=== PATIENT | female | born 1970 | race Caucasian/White ===

== ENCOUNTER → 2017-12-17 | Outpatient (CLI) | payer OTHER, BC ==
[~2017-12-17] MED LIST: Advil200 M1 PO; CONTRAVE ER 8-1 EACH; DIPATR PO; FAMC500; OXYACE5T PO; PROM25 PO
== END | disposition home or self-care (01) ==
LOC: LAB SHORT 11:52 → PLD 11:52
DX: D22.0 Melanocytic nevi of lip (principal)
CPT/HCPCS: 88305

== ENCOUNTER → 2019-04-07 | Outpatient (CLI) | payer OTHER, BC ==
[2019-04-08 11:19] LABS: Alanine Aminotransfer (ALT/SGP 20 U/L (12-78); Albumin, Blood 3.6 g/dL (3.4-5.0); Albumin/Globulin Ratio 1.1 (0.8-1.8); Alk Phos 78 U/L (50-136); Anion Gap 5 mmol/L (6-16); Aspartate Aminotrans (AST/SGOT 16 U/L (12-37); Bilirubin, Total 0.4 mg/dL (0.1-1.0); Blood Urea Nitrogen 13 mg/dL (8-24); Bun/Creatinine Ratio 18.7 (12.0-20.0); CO2, Blood 30 mmol/L (21-32); Calcium, Blood 9.2 mg/dL (8.5-10.1); Chloride, Blood 105 mmol/L (98-108); Globulin, Blood 3.3 g/dL (2.2-4.0); Glomerular Filtration Rate >60 (60-); Glucose, Blood 85 mg/dL (70-99); Potassium, Blood 4.3 mmol/L (3.5-5.5); Sodium, Blood 140 mmol/L (136-145); Total Protein, Blood 6.9 g/dL (6.4-8.2)
== END | disposition home or self-care (01) ==
LOC: LAB 14:43 → LAB SHORT 14:43
PROVIDERS: Hospitalist
DX: R10.13 Epigastric pain (principal)
CPT/HCPCS: 80053; 83690

== ENCOUNTER → 2019-06-16 | Outpatient (CLI) | payer OTHER, BC ==
[2019-06-16 16:56] LABS: BASOPHILS ABSOLUTE AUTO 0.04 K/mm3 (0.00-0.23); BASOPHILS PERCENT AUTO 1 % (0-2); EOSINOPHILS ABSOLUTE AUTO 0.06 K/mm3 (0.00-0.68); EOSINOPHILS PERCENT AUTO 1 % (0-6); Hematocrit 40.4 % (33.0-51.0); Hemoglobin 13.2 g/dL (11.5-16.0); IMMATURE GRAN ABSOLUTE AUTO 0.02 K/mm3 (0.00-0.10); IMMATURE GRAN PERCENT AUTO 0 % (0-1); LYMPHOCYTES ABSOLUTE AUTO 0.97 K/mm3 (0.84-5.20); LYMPHOCYTES PERCENT AUTO 17 % (21-46); MONOCYTES PERCENT AUTO 7 % (4-13); Mean Corpuscular HGB 28.6 pg (26.0-34.0); Mean Corpuscular HGB Conc 32.7 g/dL (31.5-36.5); Mean Corpuscular Volume 87 fL (80-100); Mean Platelet Volume 9.7 fL (9.1-12.4); NEUTROPHILS ABSOLUTE AUTO 4.39 K/mm3 (1.96-9.15); NEUTROPHILS PERCENT AUTO 75 % (41-73); Platelet Count 495 K/mm3 (150-400); RDW Coefficient Variation 12.7 % (11.7-14.2); Red Blood Cell Count 4.62 M/mm3 (3.80-5.20); White Blood Cell Count 5.88 K/mm3 (4.00-11.30)
[2019-06-16 17:03] LABS: Alanine Aminotransfer (ALT/SGP 18 U/L (12-78); Albumin, Blood 3.6 g/dL (3.4-5.0); Albumin/Globulin Ratio 0.7 (0.8-1.8); Alk Phos 97 U/L (40-126); Anion Gap 9 mmol/L (6-16); Aspartate Aminotrans (AST/SGOT 18 U/L (12-37); Bilirubin, Total 0.4 mg/dL (0.1-1.0); Blood Urea Nitrogen 11 mg/dL (8-24); Bun/Creatinine Ratio 15.9 (12.0-20.0); CO2, Blood 31 mmol/L (21-32); Calcium, Blood 9.1 mg/dL (8.5-10.1); Chloride, Blood 100 mmol/L (98-108); Creatinine, Blood 0.69 mg/dL (0.40-1.00); Globulin, Blood 5.1 g/dL (2.2-4.0); Glomerular Filtration Rate >60 (60-); Glucose, Blood 99 mg/dL (70-99); Potassium, Blood 3.8 mmol/L (3.5-5.5); Sodium, Blood 140 mmol/L (136-145); Total Protein, Blood 8.7 g/dL (6.4-8.2)
== END ==
LOC: LAB SHORT 16:47 → LAB EV 16:47
PROVIDERS: Physician Assistant Medical
DX: R10.84 Generalized abdominal pain (principal)
CPT/HCPCS: 80053; 83690; 85025

== ENCOUNTER 2019-07-26 08:25 | Day surgery (SDC) | payer OTHER, BC ==
[~2019-07-26] VITALS: Ht 170.2 cm; Wt 87.1 kg
[~2019-07-26 08:25] MED LIST changes: +ALPR.5 PO
[2019-07-26] MEDS ORDERED: PARO20 PO (08:48)
[2019-07-26] MEDS ORDERED: IBUP200 PO (08:49)
[2019-07-26] MEDS ORDERED: FAMC500 PO (08:50)
[2019-07-26] MEDS ORDERED: Percocet 5-3251 EACH PO (09:15)
--- NOTE | 2019-07-26 13:06 | NUR ---
Patient up to Ambulate independently. Gait steady. Discharge instructions reviewed with patient. Patient verbalizes understanding. Copy given to patient to take home. Patient States Post-Procedure ride home has been arranged. Discharged via wheelchair to private car for ride home. ALL MEDIPORT LITERATURE AND INSTRUCTIONS SENT HOME WITH PATIENT. UP TO VOID WITHOUT DIFFICULTY. ALL BELONINGS RETURNED TO PATIENT.
== END 2019-07-26 22:38 | disposition home or self-care (01) ==
LOC: ORSCMMR 08:25
PROVIDERS: Surgery
PROC: B5131ZA Fluoroscopy of Right Jugular Veins using Low Osmolar Contrast, Guidance (ICD-10-PCS; principal; 2019-07-26 08:30)
PROC: 05HM33Z Insertion of Infusion Device into Right Internal Jugular Vein, Percutaneous Approach (ICD-10-PCS; principal; 2019-07-26 08:30)
DX: C56.1 Malignant neoplasm of right ovary (principal); F17.210 Nicotine dependence, cigarettes, uncomplicated; G47.33 Obstructive sleep apnea (adult) (pediatric); Z79.899 Other long term (current) drug therapy
CPT/HCPCS: 77001; C1788; J0690; J1100; J1642; J2250; J2405; J2704; J7120

== ENCOUNTER 2021-09-27 08:04 | Day surgery (SDC) | payer BC ==
[2021-09-25 08:25] LABS: BASOPHILS PERCENT AUTO 0 % (0-2); EOSINOPHILS ABSOLUTE AUTO 0.04 K/mm3 (0.00-0.68); EOSINOPHILS PERCENT AUTO 2 % (0-6); Hematocrit 18.7 % (33.0-51.0); Hemoglobin 6.6 g/dL (11.5-16.0); IMMATURE GRAN ABSOLUTE AUTO 0.01 K/mm3 (0.00-0.10); IMMATURE GRAN PERCENT AUTO 1 % (0-1); LYMPHOCYTES PERCENT AUTO 21 % (21-46); MONOCYTES ABSOLUTE AUTO 0.13 K/mm3 (0.16-1.47); MONOCYTES PERCENT AUTO 7 % (4-13); Mean Corpuscular HGB 35.5 pg (26.0-34.0); Mean Corpuscular HGB Conc 35.3 g/dL (31.5-36.5); Mean Corpuscular Volume 101 fL (80-100); Mean Platelet Volume 10.2 fL (9.1-12.4); NEUTROPHILS ABSOLUTE AUTO 1.34 K/mm3 (1.96-9.15); NEUTROPHILS PERCENT AUTO 70 % (41-73); RDW Coefficient Variation 15.9 % (11.7-14.2); RDW Standard Deviation 55.5 fL (35.1-46.3); Red Blood Cell Count 1.86 M/mm3 (3.80-5.20); White Blood Cell Count 1.92 K/mm3 (4.00-11.30)
[2021-09-25 08:31] LABS: Platelet Count 31 K/mm3 (150-400)
[2021-09-25 08:44] LABS: Albumin, Blood 3.5 g/dL (3.4-5.0); Albumin/Globulin Ratio 1.1 (0.8-1.8); Bilirubin, Total 0.8 mg/dL (0.1-1.0); Bun/Creatinine Ratio 18.6 (12.0-20.0); Calcium, Blood 8.9 mg/dL (8.5-10.1); Creatinine, Blood 0.7 mg/dL (0.40-1.00); Globulin, Blood 3.3 g/dL (2.2-4.0); Potassium, Blood 3.9 mmol/L (3.5-5.5); Total Protein, Blood 6.8 g/dL (6.4-8.2)
[2021-09-25 09:55] LABS: IMMATURE RETIC FRACTION 24.5 % (2.3-16.0); RETIC HGB EQUIVALENT 39.1 pg (28.20-36.60); RETICULOCYTE ABSOLUTE 0.0564 M/mm3 (0.0200-0.1100); RETICULOCYTE COUNT PERCENT 2.79 % (0.50-2.50)
[2021-09-25 10:48] LABS: Percent Saturation 54.3 % (15.0-50.0); Thyroid Stimulating Hormone 2.42 uIU/mL (0.360-4.800)
[~2021-09-27 08:04] MED LIST changes: +CEPH500 PO; +FAMC500 PO; +IBUP200 PO; +PARO20 PO; +Percocet 5-3251 EACH PO
[2021-09-27] MEDS ORDERED: PARO20 PO (08:08)
[2021-09-27 13:11] LABS: A/G RATIO 1.4 (0.7-1.7); ALBUMIN 3.8 g/dL (2.9-4.4); ALPHA-1-GLOBULIN 0.4 g/dL (0.0-0.4); ALPHA-2-GLOBULIN 0.7 g/dL (0.4-1.0); GAMMA GLOBULIN 0.8 g/dL (0.4-1.8); GLOBULIN, TOTAL 2.8 g/dL (2.2-3.9); IMMUNOGLOBULIN A, QN, SERUM 147 mg/dL (87-352); IMMUNOGLOBULIN G, QN, SERUM 756 mg/dL (586-1602); IMMUNOGLOBULIN M, QN, SERUM 96 mg/dL (26-217); M-SPIKE Not Observed g/dL (Not Observed); PROTEIN, TOTAL, SERUM 6.6 g/dL (6.0-8.5)
== END 2021-09-27 22:36 | disposition home or self-care (01) ==
LOC: ATC 08:04 → LAB FUT 07-31 09:10 → ATC 07-31 09:10 → EDSTATUS 07-31 09:10 → ATC 09-27 09:10
PROVIDERS: Internal Medicine Hematology & Oncology
DX: C56.1 Malignant neoplasm of right ovary (principal); D64.81 Anemia due to antineoplastic chemotherapy; Z87.891 Personal history of nicotine dependence; Z79.01 Long term (current) use of anticoagulants
CPT/HCPCS: 36415; 36430; 80053; 82306; 82525; 82607; 82668; 82728; 82746; 82784; 83540; 83550; 83615; 84165; 84443; 85025; 85045; 86304; 86334; 86850; 86900; 86901; 86920; J1642; J7040; P9016

== ENCOUNTER 2021-10-18 01:53 | Day surgery (SDC) | payer BC | END 2021-10-18 17:10 | disposition home or self-care (01) | LOC: ATC 01:53 | DX: C56.1 Malignant neoplasm of right ovary (principal); C78.6 Secondary malignant neoplasm of retroperitoneum and peritoneum; C77.5 Secondary and unspecified malignant neoplasm of intrapelvic lymph nodes; D64.81 Anemia due to antineoplastic chemotherapy | CPT/HCPCS: 36415; 36430; 86850; 86900; 86901; 86923; J1642; J7040; P9016 ==

== ENCOUNTER 2021-10-31 00:18 | Day surgery (SDC) | payer BC | END 2021-10-31 16:10 | disposition home or self-care (01) | LOC: ATC 00:18 | DX: D64.9 Anemia, unspecified (principal); C56.1 Malignant neoplasm of right ovary; Z79.899 Other long term (current) drug therapy | CPT/HCPCS: 36415; 86850; 86900; 86901; 86923; J1642; J7040; P9016 ==

== ENCOUNTER 2021-11-07 01:51 | Day surgery (SDC) | payer BC | END 2021-11-07 17:48 | disposition home or self-care (01) | LOC: ATC 01:51 | DX: C56.1 Malignant neoplasm of right ovary (principal); C78.6 Secondary malignant neoplasm of retroperitoneum and peritoneum; Z87.891 Personal history of nicotine dependence | CPT/HCPCS: 36430; 86850; 86900; 86901; 86923; J1642; J7040; P9016; P9035 ==

== ENCOUNTER 2021-11-27 13:04 | Day surgery (SDC) | payer BC | END 2021-11-27 18:24 | disposition home or self-care (01) | LOC: ATC 13:04 | DX: D64.81 Anemia due to antineoplastic chemotherapy (principal); C56.1 Malignant neoplasm of right ovary; Z87.891 Personal history of nicotine dependence; Z79.899 Other long term (current) drug therapy | CPT/HCPCS: 36430; 86850; 86900; 86901; 86923; J1642; J7040; P9016 ==

== ENCOUNTER 2022-01-03 18:52 | Emergency (ER) | payer BC ==
[~2022-01-03] VITALS: Ht 170.2 cm; Wt 115.2 kg
[2022-01-03 19:59] LABS: Mean Corpuscular HGB Conc 34.7 g/dL (31.5-36.5); Mean Corpuscular Volume 87 fL (80-100); Mean Platelet Volume 10.4 fL (9.1-12.4); RDW Coefficient Variation 14.9 % (11.7-14.2); RDW Standard Deviation 44.2 fL (35.1-46.3)
[2022-01-03 20:02] LABS: Platelet Count 8 K/mm3 (150-400)
[2022-01-03 20:03] LABS: Hematocrit 17.3 % (33.0-51.0)
[2022-01-03 20:12] LABS: International Normalized Ratio 0.94; Prothrombin Time Results 9.9 Sec (9.7-11.5)
[2022-01-03 20:14] LABS: Albumin, Blood 3.5 g/dL (3.4-5.0); Bilirubin, Total 0.7 mg/dL (0.1-1.0); Bun/Creatinine Ratio 26.5 (12.0-20.0); Calcium, Blood 8.7 mg/dL (8.5-10.1); Creatinine, Blood 0.91 mg/dL (0.40-1.00); Globulin, Blood 3.5 g/dL (2.2-4.0); Potassium, Blood 3.6 mmol/L (3.5-5.5)
[2022-01-03 20:18] LABS: BAND PERCENT MAN 2 % (0-8); BASOPHILS PERCENT MAN 0 % (0-2); EOSINOPHILS PERCENT MAN 4 % (0-6); LYMPHOCYTES ABSOLUTE MAN 0.69 K/mm3 (0.84-5.20); LYMPHOCYTES PERCENT MAN 9 % (21-46); METAMYELOCYTE ABSOLUTE MAN 0.07 K/mm3 (0.00-0.00); METAMYELOCYTE PERCENT MAN 1 % (0-0); MONOCYTES PERCENT MAN 4 % (4-13); MYELOCYTE ABSOLUTE MAN 0.15 K/mm3 (0.00-0.00); MYELOCYTE PERCENT MAN 2 % (0-0); NEUTROPHILS ABSOLUTE MAN 6.16 K/mm3 (1.96-9.15); SEG NEUTROPHILS PERCENT MAN 78 % (41-73); TOTAL CELLS COUNTED 100
== END 2022-01-04 03:33 | disposition home or self-care (01) ==
LOC: ER 18:52
PROVIDERS: Physician Assistant
DX: N93.9 Abnormal uterine and vaginal bleeding, unspecified (principal); D64.9 Anemia, unspecified; D69.6 Thrombocytopenia, unspecified; Z87.891 Personal history of nicotine dependence; Z85.43 Personal history of malignant neoplasm of ovary
CPT/HCPCS: 36430; 80053; 85025; 85610; 86850; 86900; 86901; 86923; 96360; 99284-25; J7030; P9016; P9035

== ENCOUNTER 2022-01-24 03:20 | Day surgery (SDC) | payer BC ==
[2022-01-23 12:20] LABS: Hematocrit 21.8 % (33.0-51.0); Hemoglobin 7.5 g/dL (11.5-16.0); Mean Corpuscular HGB 30.4 pg (26.0-34.0); Mean Corpuscular HGB Conc 34.4 g/dL (31.5-36.5); Mean Corpuscular Volume 88 fL (80-100); RDW Coefficient Variation 14.6 % (11.7-14.2); RDW Standard Deviation 46.8 fL (35.1-46.3); Red Blood Cell Count 2.47 M/mm3 (3.80-5.20); White Blood Cell Count 5.92 K/mm3 (4.00-11.30)
[2022-01-23 12:52] LABS: Platelet Count 6 K/mm3 (150-400)
[2022-01-23 13:05] LABS: BASOPHILS PERCENT MAN 0 % (0-2); EOSINOPHILS ABSOLUTE MAN 0.17 K/mm3 (0.00-0.68); EOSINOPHILS PERCENT MAN 3 % (0-6); LYMPHOCYTES ABSOLUTE MAN 0.59 K/mm3 (0.84-5.20); LYMPHOCYTES PERCENT MAN 10 % (21-46); MONOCYTES ABSOLUTE MAN 0.35 K/mm3 (0.16-1.47); MONOCYTES PERCENT MAN 6 % (4-13); NEUTROPHILS ABSOLUTE MAN 4.79 K/mm3 (1.96-9.15); SEG NEUTROPHILS PERCENT MAN 81 % (41-73); TOTAL CELLS COUNTED 100
== END 2022-01-24 14:08 | disposition home or self-care (01) ==
LOC: ATC 03:20
PROVIDERS: Internal Medicine Hematology & Oncology
DX: C56.1 Malignant neoplasm of right ovary (principal)
CPT/HCPCS: 36415; 36430; 85025; 86900; 86901; J1642; J7040; P9035

== ENCOUNTER 2022-02-07 00:37 | Day surgery (SDC) | payer BC ==
[2022-02-06 13:42] LABS: Hematocrit 23.1 % (33.0-51.0); Hemoglobin 7.9 g/dL (11.5-16.0); Mean Corpuscular HGB 29.8 pg (26.0-34.0); Mean Corpuscular HGB Conc 34.2 g/dL (31.5-36.5); Mean Corpuscular Volume 87 fL (80-100); Mean Platelet Volume 11.4 fL (9.1-12.4); RDW Coefficient Variation 13.9 % (11.7-14.2); Red Blood Cell Count 2.65 M/mm3 (3.80-5.20); White Blood Cell Count 9.45 K/mm3 (4.00-11.30)
[2022-02-06 13:53] LABS: Platelet Count 6 K/mm3 (150-400)
[2022-02-06 14:03] LABS: BAND PERCENT MAN 1 % (0-8); BASOPHILS PERCENT MAN 0 % (0-2); EOSINOPHILS PERCENT MAN 0 % (0-6); LYMPHOCYTES ABSOLUTE MAN 0.56 K/mm3 (0.84-5.20); LYMPHOCYTES PERCENT MAN 6 % (21-46); MONOCYTES ABSOLUTE MAN 0.28 K/mm3 (0.16-1.47); MONOCYTES PERCENT MAN 3 % (4-13); NEUTROPHILS ABSOLUTE MAN 8.59 K/mm3 (1.96-9.15); SEG NEUTROPHILS PERCENT MAN 90 % (41-73); TOTAL CELLS COUNTED 100
== END 2022-02-07 15:19 | disposition home or self-care (01) ==
LOC: ATC 00:37
PROVIDERS: Internal Medicine Hematology & Oncology
DX: C56.1 Malignant neoplasm of right ovary (principal); D69.59 Other secondary thrombocytopenia
CPT/HCPCS: 36415; 36430; 85025; 86900; 86901; J1642; J7040; P9035

== ENCOUNTER 2022-02-13 12:51 | Day surgery (SDC) | payer BC ==
[2022-02-12 19:19] LABS: Hematocrit 22.7 % (33.0-51.0); Hemoglobin 7.4 g/dL (11.5-16.0); Mean Corpuscular HGB 28.9 pg (26.0-34.0); Mean Corpuscular HGB Conc 32.6 g/dL (31.5-36.5); Mean Corpuscular Volume 89 fL (80-100); RDW Standard Deviation 45.3 fL (35.1-46.3); Red Blood Cell Count 2.56 M/mm3 (3.80-5.20); White Blood Cell Count 6.66 K/mm3 (4.00-11.30)
[2022-02-12 19:45] LABS: Platelet Count 6 K/mm3 (150-400)
[2022-02-12 20:15] LABS: BAND PERCENT MAN 2 % (0-8); BASOPHILS PERCENT MAN 0 % (0-2); EOSINOPHILS ABSOLUTE MAN 0.06 K/mm3 (0.00-0.68); EOSINOPHILS PERCENT MAN 1 % (0-6); LYMPHOCYTES ABSOLUTE MAN 0.66 K/mm3 (0.84-5.20); LYMPHOCYTES PERCENT MAN 10 % (21-46); METAMYELOCYTE ABSOLUTE MAN 0.19 K/mm3 (0.00-0.00); METAMYELOCYTE PERCENT MAN 3 % (0-0); MONOCYTES ABSOLUTE MAN 0.13 K/mm3 (0.16-1.47); MONOCYTES PERCENT MAN 2 % (4-13); MYELOCYTE ABSOLUTE MAN 0.26 K/mm3 (0.00-0.00); MYELOCYTE PERCENT MAN 4 % (0-0); NEUTROPHILS ABSOLUTE MAN 5.32 K/mm3 (1.96-9.15); SEG NEUTROPHILS PERCENT MAN 78 % (41-73); TOTAL CELLS COUNTED 100
== END 2022-02-13 17:58 | disposition home or self-care (01) ==
LOC: ATC 12:51 → EDSTATUS 12:54 → ATC 17:58
PROVIDERS: Internal Medicine Hematology & Oncology
DX: C56.1 Malignant neoplasm of right ovary (principal); D69.59 Other secondary thrombocytopenia; Z87.891 Personal history of nicotine dependence
CPT/HCPCS: 36415; 85025; 86900; 86901; J1642; J7040; P9035

== ENCOUNTER 2022-02-19 00:08 | Day surgery (SDC) | payer BC ==
[2022-02-18 12:39] LABS: BASOPHILS PERCENT AUTO 0 % (0-2); EOSINOPHILS ABSOLUTE AUTO 0.05 K/mm3 (0.00-0.68); EOSINOPHILS PERCENT AUTO 1 % (0-6); Mean Corpuscular HGB 30.2 pg (26.0-34.0); Mean Corpuscular HGB Conc 34.5 g/dL (31.5-36.5); Mean Corpuscular Volume 88 fL (80-100); Mean Platelet Volume 10.2 fL (9.1-12.4); RDW Coefficient Variation 13.4 % (11.7-14.2); RDW Standard Deviation 42.7 fL (35.1-46.3); Red Blood Cell Count 1.92 M/mm3 (3.80-5.20); White Blood Cell Count 3.68 K/mm3 (4.00-11.30)
[2022-02-18 13:23] LABS: Hematocrit 16.8 % (33.0-51.0); Hemoglobin 5.8 g/dL (11.5-16.0); IMMATURE GRAN ABSOLUTE AUTO 0.07 K/mm3 (0.00-0.10); IMMATURE GRAN PERCENT AUTO 2 % (0-1); LYMPHOCYTES PERCENT AUTO 14 % (21-46); MONOCYTES ABSOLUTE AUTO 0.18 K/mm3 (0.16-1.47); MONOCYTES PERCENT AUTO 5 % (4-13); NEUTROPHILS ABSOLUTE AUTO 2.88 K/mm3 (1.96-9.15); NEUTROPHILS PERCENT AUTO 78 % (41-73)
[2022-02-18 13:24] LABS: Platelet Count 16 K/mm3 (150-400)
[2022-02-18 13:47] LABS: BASOPHILS PERCENT MAN 0 % (0-2); TOTAL CELLS COUNTED 100
[2022-02-18 13:49] LABS: BAND PERCENT MAN 2 % (0-8); EOSINOPHILS ABSOLUTE MAN 0.03 K/mm3 (0.00-0.68); EOSINOPHILS PERCENT MAN 1 % (0-6); LYMPHOCYTES PERCENT MAN 11 % (21-46); MONOCYTES ABSOLUTE MAN 0.07 K/mm3 (0.16-1.47); MONOCYTES PERCENT MAN 2 % (4-13); NEUTROPHILS ABSOLUTE MAN 3.16 K/mm3 (1.96-9.15); SEG NEUTROPHILS PERCENT MAN 84 % (41-73)
== END 2022-02-19 11:50 | disposition home or self-care (01) ==
LOC: ATC 00:08 → EDSTATUS 14:00
PROVIDERS: Internal Medicine Hematology & Oncology
DX: C56.1 Malignant neoplasm of right ovary (principal); D64.81 Anemia due to antineoplastic chemotherapy; D46.21 Refractory anemia with excess of blasts 1; T45.1X5A Adverse effect of antineoplastic and immunosuppressive drugs, initial encounter
CPT/HCPCS: 36415; 36430; 85025; 86850; 86900; 86901; 86923; J1642; J7040; P9016

== ENCOUNTER 2022-02-27 06:00 | Day surgery (SDC) | payer BC ==
[2022-02-26 11:11] LABS: BASOPHILS PERCENT AUTO 0 % (0-2); EOSINOPHILS ABSOLUTE AUTO 0.01 K/mm3 (0.00-0.68); EOSINOPHILS PERCENT AUTO 0 % (0-6); Hematocrit 18.7 % (33.0-51.0); Hemoglobin 6.5 g/dL (11.5-16.0); IMMATURE GRAN ABSOLUTE AUTO 0.14 K/mm3 (0.00-0.10); IMMATURE GRAN PERCENT AUTO 3 % (0-1); LYMPHOCYTES ABSOLUTE AUTO 0.39 K/mm3 (0.84-5.20); LYMPHOCYTES PERCENT AUTO 9 % (21-46); MONOCYTES ABSOLUTE AUTO 0.12 K/mm3 (0.16-1.47); MONOCYTES PERCENT AUTO 3 % (4-13); Mean Corpuscular HGB 29.1 pg (26.0-34.0); Mean Corpuscular HGB Conc 34.8 g/dL (31.5-36.5); Mean Corpuscular Volume 84 fL (80-100); NEUTROPHILS ABSOLUTE AUTO 3.49 K/mm3 (1.96-9.15); NEUTROPHILS PERCENT AUTO 84 % (41-73); RDW Coefficient Variation 13.2 % (11.7-14.2); RDW Standard Deviation 39.7 fL (35.1-46.3); Red Blood Cell Count 2.23 M/mm3 (3.80-5.20); White Blood Cell Count 4.15 K/mm3 (4.00-11.30)
[2022-02-26 11:19] LABS: Platelet Count 6 K/mm3 (150-400)
[2022-02-26 12:14] LABS: Albumin, Blood 3.3 g/dL (3.4-5.0); Albumin/Globulin Ratio 0.8 (0.8-1.8); Bilirubin, Total 0.7 mg/dL (0.1-1.0); Bun/Creatinine Ratio 35.2 (12.0-20.0); Calcium, Blood 9.2 mg/dL (8.5-10.1); Creatinine, Blood 0.74 mg/dL (0.40-1.00); Globulin, Blood 3.9 g/dL (2.2-4.0); Potassium, Blood 4.1 mmol/L (3.5-5.5); Total Protein, Blood 7.2 g/dL (6.4-8.2)
== END 2022-02-27 14:18 | disposition home or self-care (01) ==
LOC: ATC 06:00 → LAB FUT 02-22 14:35 → EDSTATUS 02-22 14:35
PROVIDERS: Internal Medicine Hematology & Oncology
DX: C56.1 Malignant neoplasm of right ovary (principal); D46.21 Refractory anemia with excess of blasts 1; D70.1 Agranulocytosis secondary to cancer chemotherapy
CPT/HCPCS: 36415; 36430; 80053; 85025; 86304; 86850; 86900; 86901; 86923; J1642; J7040; P9016; P9035

== ENCOUNTER 2022-03-06 00:18 | Day surgery (SDC) | payer BC ==
[2022-03-05 08:39] LABS: BASOPHILS PERCENT AUTO 0 % (0-2); EOSINOPHILS PERCENT AUTO 0 % (0-6); Hematocrit 24.6 % (33.0-51.0); Hemoglobin 8.4 g/dL (11.5-16.0); IMMATURE GRAN ABSOLUTE AUTO 0.11 K/mm3 (0.00-0.10); IMMATURE GRAN PERCENT AUTO 2 % (0-1); LYMPHOCYTES ABSOLUTE AUTO 0.42 K/mm3 (0.84-5.20); LYMPHOCYTES PERCENT AUTO 8 % (21-46); MONOCYTES ABSOLUTE AUTO 0.08 K/mm3 (0.16-1.47); MONOCYTES PERCENT AUTO 2 % (4-13); Mean Corpuscular HGB 28.7 pg (26.0-34.0); Mean Corpuscular HGB Conc 34.1 g/dL (31.5-36.5); Mean Corpuscular Volume 84 fL (80-100); Mean Platelet Volume 9.4 fL (9.1-12.4); NEUTROPHILS ABSOLUTE AUTO 4.37 K/mm3 (1.96-9.15); NEUTROPHILS PERCENT AUTO 88 % (41-73); RDW Standard Deviation 39.8 fL (35.1-46.3); Red Blood Cell Count 2.93 M/mm3 (3.80-5.20); White Blood Cell Count 4.98 K/mm3 (4.00-11.30)
[2022-03-05 09:09] LABS: Platelet Count 10 K/mm3 (150-400)
== END 2022-03-06 11:07 | disposition home or self-care (01) ==
LOC: ATC 00:18 → EDSTATUS 09:30 → ATC 11:07
PROVIDERS: Internal Medicine Hematology & Oncology
DX: D69.59 Other secondary thrombocytopenia (principal); C56.1 Malignant neoplasm of right ovary; D46.21 Refractory anemia with excess of blasts 1
CPT/HCPCS: 36415; 36430; 85025; 86900; 86901; J1642; J7040; P9035

== ENCOUNTER 2022-03-29 01:01 | Day surgery (SDC) | payer BC ==
[2022-03-27 11:51] LABS: BASOPHILS PERCENT AUTO 0 % (0-2); EOSINOPHILS PERCENT AUTO 0 % (0-6); Hematocrit 18.4 % (33.0-51.0); Hemoglobin 6.3 g/dL (11.5-16.0); IMMATURE GRAN ABSOLUTE AUTO 0.04 K/mm3 (0.00-0.10); IMMATURE GRAN PERCENT AUTO 1 % (0-1); LYMPHOCYTES ABSOLUTE AUTO 0.35 K/mm3 (0.84-5.20); LYMPHOCYTES PERCENT AUTO 12 % (21-46); MONOCYTES ABSOLUTE AUTO 0.06 K/mm3 (0.16-1.47); MONOCYTES PERCENT AUTO 2 % (4-13); Mean Corpuscular HGB 28.4 pg (26.0-34.0); Mean Corpuscular HGB Conc 34.2 g/dL (31.5-36.5); Mean Corpuscular Volume 83 fL (80-100); Mean Platelet Volume 9.9 fL (9.1-12.4); NEUTROPHILS ABSOLUTE AUTO 2.44 K/mm3 (1.96-9.15); NEUTROPHILS PERCENT AUTO 84 % (41-73); RDW Coefficient Variation 13.2 % (11.7-14.2); RDW Standard Deviation 39.9 fL (35.1-46.3); Red Blood Cell Count 2.22 M/mm3 (3.80-5.20); White Blood Cell Count 2.89 K/mm3 (4.00-11.30)
[2022-03-27 12:11] LABS: Platelet Count 14 K/mm3 (150-400)
== END 2022-03-29 10:58 | disposition home or self-care (01) ==
LOC: ATC 01:01 → EDSTATUS 07:30 → ATC 07:30
PROVIDERS: Internal Medicine Hematology & Oncology
DX: C56.1 Malignant neoplasm of right ovary (principal); Z87.891 Personal history of nicotine dependence; Z79.1 Long term (current) use of non-steroidal anti-inflammatories (NSAID); Z79.01 Long term (current) use of anticoagulants; Z79.899 Other long term (current) drug therapy
CPT/HCPCS: 36415; 36430; 85025; 86850; 86900; 86901; 86923; J1642; J7040; P9016

== ENCOUNTER 2022-04-08 14:24 | Day surgery (SDC) | payer BC | END 2022-04-08 15:53 | disposition home or self-care (01) | LOC: ATC 14:24 | DX: C56.1 Malignant neoplasm of right ovary (principal); D69.59 Other secondary thrombocytopenia; D46.21 Refractory anemia with excess of blasts 1 | CPT/HCPCS: 86900; 86901; J1642; J7040; P9035 ==

== ENCOUNTER 2022-05-10 22:13 | Emergency (ER) | payer BC ==
[~2022-05-10] VITALS: Ht 170.2 cm; Wt 108.9 kg
[~2022-05-10 22:13] MED LIST changes: +FENTANYL1 EA10 TOP; +OMEPRAZOLE DR PO; +OXYC10TA19 PO; +Ondansetron Odt8 MG
[2022-05-10] MEDS ORDERED: AMOX-CLAV 875-1 EAC5 PO (22:33)
[2022-05-10 23:36] LABS: Hematocrit 21.4 % (33.0-51.0); Hemoglobin 7.3 g/dL (11.5-16.0); Mean Corpuscular HGB 29.1 pg (26.0-34.0); Mean Corpuscular HGB Conc 34.1 g/dL (31.5-36.5); Mean Corpuscular Volume 85 fL (80-100); Mean Platelet Volume 9.3 fL (9.1-12.4); RDW Coefficient Variation 14.7 % (11.7-14.2); RDW Standard Deviation 45.6 fL (35.1-46.3); Red Blood Cell Count 2.51 M/mm3 (3.80-5.20)
[2022-05-10 23:38] LABS: Platelet Count 6 K/mm3 (150-400)
[2022-05-10 23:53] LABS: Albumin, Blood 2.7 g/dL (3.4-5.0); Albumin/Globulin Ratio 0.8 (0.8-1.8); Bilirubin, Total 1.3 mg/dL (0.1-1.0); Bun/Creatinine Ratio 21.7 (12.0-20.0); Calcium, Blood 8.7 mg/dL (8.5-10.1); Creatinine, Blood 0.65 mg/dL (0.40-1.00); Globulin, Blood 3.4 g/dL (2.2-4.0); Potassium, Blood 3.6 mmol/L (3.5-5.5); Total Protein, Blood 6.1 g/dL (6.4-8.2)
[2022-05-10 23:57] LABS: BAND PERCENT MAN 3 % (0-8); BASOPHILS PERCENT MAN 0 % (0-2); EOSINOPHILS PERCENT MAN 0 % (0-6); LYMPHOCYTES ABSOLUTE MAN 0.18 K/mm3 (0.84-5.20); LYMPHOCYTES PERCENT MAN 5 % (21-46); METAMYELOCYTE ABSOLUTE MAN 0.07 K/mm3 (0.00-0.00); METAMYELOCYTE PERCENT MAN 2 % (0-0); MONOCYTES ABSOLUTE MAN 0.21 K/mm3 (0.16-1.47); MONOCYTES PERCENT MAN 6 % (4-13); NEUTROPHILS ABSOLUTE MAN 3.13 K/mm3 (1.96-9.15); SEG NEUTROPHILS PERCENT MAN 84 % (41-73); TOTAL CELLS COUNTED 100
== END 2022-05-11 02:28 | disposition home or self-care (01) ==
LOC: ER 22:13
PROVIDERS: Student in an Organized Health Care Education/Training Program
DX: U07.1 COVID-19 (principal); D72.819 Decreased white blood cell count, unspecified; D64.9 Anemia, unspecified; D84.821 Immunodeficiency due to drugs; T45.1X5A Adverse effect of antineoplastic and immunosuppressive drugs, initial encounter; C56.9 Malignant neoplasm of unspecified ovary; Z79.899 Other long term (current) drug therapy
CPT/HCPCS: 36415; 71045; 80053; 85025; 93005; 93010; 96360; 99285-25; A9270; J7030

== ENCOUNTER 2022-05-14 12:00 | Day surgery (SDC) | payer BC ==
[2022-05-13 15:41] LABS: BASOPHILS ABSOLUTE AUTO 0.01 K/mm3 (0.00-0.23); BASOPHILS PERCENT AUTO 0 % (0-2); EOSINOPHILS ABSOLUTE AUTO 0.03 K/mm3 (0.00-0.68); EOSINOPHILS PERCENT AUTO 1 % (0-6); Hematocrit 21.2 % (33.0-51.0); Hemoglobin 7.2 g/dL (11.5-16.0); IMMATURE GRAN ABSOLUTE AUTO 0.32 K/mm3 (0.00-0.10); IMMATURE GRAN PERCENT AUTO 7 % (0-1); LYMPHOCYTES ABSOLUTE AUTO 0.38 K/mm3 (0.84-5.20); LYMPHOCYTES PERCENT AUTO 9 % (21-46); MONOCYTES ABSOLUTE AUTO 0.16 K/mm3 (0.16-1.47); MONOCYTES PERCENT AUTO 4 % (4-13); Mean Corpuscular HGB 29.3 pg (26.0-34.0); Mean Corpuscular Volume 86 fL (80-100); Mean Platelet Volume 11.1 fL (9.1-12.4); NEUTROPHILS ABSOLUTE AUTO 3.56 K/mm3 (1.96-9.15); NEUTROPHILS PERCENT AUTO 80 % (41-73); RDW Coefficient Variation 14.6 % (11.7-14.2); RDW Standard Deviation 45.9 fL (35.1-46.3); Red Blood Cell Count 2.46 M/mm3 (3.80-5.20); White Blood Cell Count 4.46 K/mm3 (4.00-11.30)
[2022-05-13 15:48] LABS: Platelet Count 3 K/mm3 (150-400)
[2022-05-13 15:57] LABS: Albumin, Blood 2.8 g/dL (3.4-5.0); Albumin/Globulin Ratio 0.7 (0.8-1.8); Bilirubin, Total 0.9 mg/dL (0.1-1.0); Bun/Creatinine Ratio 25.6 (12.0-20.0); Calcium, Blood 9.1 mg/dL (8.5-10.1); Creatinine, Blood 0.63 mg/dL (0.40-1.00); Potassium, Blood 3.4 mmol/L (3.5-5.5); Total Protein, Blood 6.8 g/dL (6.4-8.2)
[~2022-05-14 12:00] MED LIST changes: +AMOX-CLAV 875-1 EAC5 PO
== END 2022-05-14 23:59 | disposition home or self-care (01) ==
LOC: ATC 12:00
PROVIDERS: Internal Medicine Hematology & Oncology
DX: D69.59 Other secondary thrombocytopenia (principal); T50.905A Adverse effect of unspecified drugs, medicaments and biological substances, initial encounter; Z87.891 Personal history of nicotine dependence; Z79.899 Other long term (current) drug therapy; Z79.01 Long term (current) use of anticoagulants
CPT/HCPCS: 36415; 36430; 80053; 85025; 86900; 86901; 96374; A9270; J1200; J1642; J7040; P9035

== ENCOUNTER 2022-05-20 09:43 | Day surgery (SDC) | payer BC ==
[2022-05-20 08:43] LABS: Albumin, Blood 2.7 g/dL (3.4-5.0); Albumin/Globulin Ratio 0.7 (0.8-1.8); Bilirubin, Total 0.9 mg/dL (0.1-1.0); Calcium, Blood 8.5 mg/dL (8.5-10.1); Creatinine, Blood 0.76 mg/dL (0.40-1.00); Potassium, Blood 3.5 mmol/L (3.5-5.5); Total Protein, Blood 6.7 g/dL (6.4-8.2)
[2022-05-20 08:45] LABS: BASOPHILS PERCENT AUTO 0 % (0-2); EOSINOPHILS ABSOLUTE AUTO 0.01 K/mm3 (0.00-0.68); EOSINOPHILS PERCENT AUTO 0 % (0-6); IMMATURE GRAN ABSOLUTE AUTO 0.12 K/mm3 (0.00-0.10); IMMATURE GRAN PERCENT AUTO 2 % (0-1); LYMPHOCYTES ABSOLUTE AUTO 0.49 K/mm3 (0.84-5.20); LYMPHOCYTES PERCENT AUTO 7 % (21-46); MONOCYTES ABSOLUTE AUTO 0.18 K/mm3 (0.16-1.47); MONOCYTES PERCENT AUTO 2 % (4-13); Mean Corpuscular HGB 29.4 pg (26.0-34.0); Mean Corpuscular HGB Conc 34.5 g/dL (31.5-36.5); Mean Corpuscular Volume 85 fL (80-100); Mean Platelet Volume 9.9 fL (9.1-12.4); NEUTROPHILS ABSOLUTE AUTO 6.67 K/mm3 (1.96-9.15); NEUTROPHILS PERCENT AUTO 89 % (41-73); RDW Coefficient Variation 14.3 % (11.7-14.2); RDW Standard Deviation 44.5 fL (35.1-46.3); White Blood Cell Count 7.47 K/mm3 (4.00-11.30)
[2022-05-20 09:10] LABS: Hematocrit 14.5 % (33.0-51.0)
[2022-05-20 09:11] LABS: Platelet Count 8 K/mm3 (150-400)
--- NOTE | 2022-05-20 10:48 | NUR ---
PT O2 IS 87-88 ON RA. PT PLACED ON 1L OF O2 VIA N/C. WITH 1ST 15 MINUTED VS HER O2 WAS 95% ON 1L N/C. TOO O2 OFF AND BIO WAS 91%.
== END 2022-05-20 15:21 | disposition home or self-care (01) ==
LOC: ATC 09:43 → EDSTATUS 09:49 → ATC 15:21
PROVIDERS: Internal Medicine Hematology & Oncology
DX: D46.21 Refractory anemia with excess of blasts 1 (principal); D69.59 Other secondary thrombocytopenia; T50.905A Adverse effect of unspecified drugs, medicaments and biological substances, initial encounter; C56.1 Malignant neoplasm of right ovary; Z87.891 Personal history of nicotine dependence; Z79.899 Other long term (current) drug therapy; Z79.01 Long term (current) use of anticoagulants
CPT/HCPCS: 36415; 36430; 80053; 85025; 86850; 86900; 86901; 86923; 96374; A9270; J1200; J1642; J7050; P9016; P9035

== ENCOUNTER 2022-05-28 06:55 | Day surgery (SDC) | payer BC ==
[2022-05-27 12:11] LABS: BASOPHILS ABSOLUTE AUTO 0.01 K/mm3 (0.00-0.23); BASOPHILS PERCENT AUTO 0 % (0-2); EOSINOPHILS ABSOLUTE AUTO 0.04 K/mm3 (0.00-0.68); EOSINOPHILS PERCENT AUTO 1 % (0-6); Hematocrit 19.4 % (33.0-51.0); Hemoglobin 6.6 g/dL (11.5-16.0); IMMATURE GRAN ABSOLUTE AUTO 0.24 K/mm3 (0.00-0.10); IMMATURE GRAN PERCENT AUTO 5 % (0-1); LYMPHOCYTES ABSOLUTE AUTO 0.15 K/mm3 (0.84-5.20); LYMPHOCYTES PERCENT AUTO 3 % (21-46); MONOCYTES ABSOLUTE AUTO 0.05 K/mm3 (0.16-1.47); MONOCYTES PERCENT AUTO 1 % (4-13); Mean Corpuscular Volume 88 fL (80-100); Mean Platelet Volume 10.7 fL (9.1-12.4); NEUTROPHILS ABSOLUTE AUTO 4.86 K/mm3 (1.96-9.15); NEUTROPHILS PERCENT AUTO 91 % (41-73); RDW Coefficient Variation 14.3 % (11.7-14.2); RDW Standard Deviation 45.8 fL (35.1-46.3); White Blood Cell Count 5.35 K/mm3 (4.00-11.30)
[2022-05-27 12:19] LABS: Platelet Count 4 K/mm3 (150-400)
[2022-05-27 12:39] LABS: Albumin, Blood 2.8 g/dL (3.4-5.0); Albumin/Globulin Ratio 0.8 (0.8-1.8); Bilirubin, Total 0.8 mg/dL (0.1-1.0); Bun/Creatinine Ratio 20.5 (12.0-20.0); Calcium, Blood 8.8 mg/dL (8.5-10.1); Creatinine, Blood 0.68 mg/dL (0.40-1.00); Globulin, Blood 3.4 g/dL (2.2-4.0); Potassium, Blood 3.8 mmol/L (3.5-5.5); Total Protein, Blood 6.2 g/dL (6.4-8.2)
== END 2022-05-28 18:30 | disposition home or self-care (01) ==
LOC: ATC 06:55 → EDSTATUS 13:30 → ATC 18:30
PROVIDERS: Internal Medicine Hematology & Oncology
DX: D46.21 Refractory anemia with excess of blasts 1 (principal); D69.59 Other secondary thrombocytopenia; D64.81 Anemia due to antineoplastic chemotherapy; C56.1 Malignant neoplasm of right ovary
CPT/HCPCS: 36415; 36430; 80053; 85025; 86850; 86900; 86901; 86923; A9270; J1200; J1642; J7050; P9016; P9035

== ENCOUNTER 2022-06-05 02:01 | Day surgery (SDC) | payer BC ==
[2022-06-03 10:06] LABS: Hematocrit 23.8 % (33.0-51.0); Mean Corpuscular HGB 28.5 pg (26.0-34.0); Mean Corpuscular HGB Conc 33.6 g/dL (31.5-36.5); Mean Corpuscular Volume 85 fL (80-100); RDW Coefficient Variation 14.6 % (11.7-14.2); RDW Standard Deviation 45.1 fL (35.1-46.3); Red Blood Cell Count 2.81 M/mm3 (3.80-5.20); White Blood Cell Count 3.67 K/mm3 (4.00-11.30)
[2022-06-03 10:53] LABS: Platelet Count 5 K/mm3 (150-400)
[2022-06-03 11:11] LABS: BAND PERCENT MAN 1 % (0-8); BASOPHILS PERCENT MAN 0 % (0-2); EOSINOPHILS PERCENT MAN 0 % (0-6); LYMPHOCYTES ABSOLUTE MAN 0.22 K/mm3 (0.84-5.20); LYMPHOCYTES PERCENT MAN 6 % (21-46); MONOCYTES ABSOLUTE MAN 0.11 K/mm3 (0.16-1.47); MONOCYTES PERCENT MAN 3 % (4-13); NEUTROPHILS ABSOLUTE MAN 3.33 K/mm3 (1.96-9.15); SEG NEUTROPHILS PERCENT MAN 90 % (41-73); TOTAL CELLS COUNTED 100
== END 2022-06-05 15:00 | disposition home or self-care (01) ==
LOC: ATC 02:01
PROVIDERS: Internal Medicine Hematology & Oncology
DX: D46.21 Refractory anemia with excess of blasts 1 (principal); C56.9 Malignant neoplasm of unspecified ovary; Z88.0 Allergy status to penicillin; Z88.5 Allergy status to narcotic agent
CPT/HCPCS: 36415; 36430; 85025; 86900; 86901; A9270; J1642; J7050; P9035

== ENCOUNTER 2022-06-24 09:52 | Day surgery (SDC) | payer BC ==
[2022-06-24 08:44] LABS: Hematocrit 22.1 % (33.0-51.0); Hemoglobin 7.5 g/dL (11.5-16.0); Mean Corpuscular HGB 29.5 pg (26.0-34.0); Mean Corpuscular HGB Conc 33.9 g/dL (31.5-36.5); Mean Corpuscular Volume 87 fL (80-100); Mean Platelet Volume 9.9 fL (9.1-12.4); RDW Coefficient Variation 14.1 % (11.7-14.2); RDW Standard Deviation 45.3 fL (35.1-46.3); Red Blood Cell Count 2.54 M/mm3 (3.80-5.20)
[2022-06-24 08:49] LABS: Platelet Count 10 K/mm3 (150-400)
[2022-06-24 09:19] LABS: BAND PERCENT MAN 2 % (0-8); BASOPHILS PERCENT MAN 0 % (0-2); EOSINOPHILS ABSOLUTE MAN 0.04 K/mm3 (0.00-0.68); EOSINOPHILS PERCENT MAN 1 % (0-6); LYMPHOCYTES ABSOLUTE MAN 0.24 K/mm3 (0.84-5.20); LYMPHOCYTES PERCENT MAN 6 % (21-46); METAMYELOCYTE ABSOLUTE MAN 0.04 K/mm3 (0.00-0.00); METAMYELOCYTE PERCENT MAN 1 % (0-0); MONOCYTES ABSOLUTE MAN 0.08 K/mm3 (0.16-1.47); MONOCYTES PERCENT MAN 2 % (4-13); MYELOCYTE ABSOLUTE MAN 0.04 K/mm3 (0.00-0.00); MYELOCYTE PERCENT MAN 1 % (0-0); NEUTROPHILS ABSOLUTE MAN 3.64 K/mm3 (1.96-9.15); SEG NEUTROPHILS PERCENT MAN 87 % (41-73); TOTAL CELLS COUNTED 100
[~2022-06-24 09:52] MED LIST changes: -Ondansetron Odt8 MG; +Ondansetron Odt8 MG PO
[2022-06-24] MEDS ORDERED: LEVAQUIN750 MG PO (15:05)
== END 2022-06-24 16:17 | disposition home or self-care (01) ==
LOC: ATC 09:52 → EDSTATUS 09:53 → ATC 16:17
PROVIDERS: Nurse Practitioner
DX: D46.21 Refractory anemia with excess of blasts 1 (principal); D69.59 Other secondary thrombocytopenia; C56.1 Malignant neoplasm of right ovary
CPT/HCPCS: 36415; 36430; 85025; 86900; 86901; 96374; A9270; J1200; J1642; J7050; P9035

== ENCOUNTER 2022-06-25 15:24 | Inpatient (IN) | payer BC ==
[~2022-06-25] VITALS: Ht 170.2 cm; Wt 111.1 kg
[~2022-06-25 15:24] MED LIST changes: +LEVAQUIN750 MG PO
[2022-06-25 16:38] LABS: Hemoglobin 6.8 g/dL (11.5-16.0); Mean Corpuscular HGB 29.4 pg (26.0-34.0); Mean Corpuscular Volume 87 fL (80-100); Mean Platelet Volume 10.3 fL (9.1-12.4); RDW Coefficient Variation 14.1 % (11.7-14.2); RDW Standard Deviation 44.9 fL (35.1-46.3); Red Blood Cell Count 2.31 M/mm3 (3.80-5.20); White Blood Cell Count 6.92 K/mm3 (4.00-11.30)
[2022-06-25 16:41] LABS: Platelet Count 23 K/mm3 (150-400)
[2022-06-25 16:54] LABS: Albumin, Blood 2.8 g/dL (3.4-5.0); Albumin/Globulin Ratio 0.8 (0.8-1.8); Bilirubin, Total 0.6 mg/dL (0.1-1.0); Bun/Creatinine Ratio 28.7 (12.0-20.0); Calcium, Blood 8.9 mg/dL (8.5-10.1); Creatinine, Blood 0.7 mg/dL (0.40-1.00); Globulin, Blood 3.7 g/dL (2.2-4.0); Potassium, Blood 3.7 mmol/L (3.5-5.5); Total Protein, Blood 6.5 g/dL (6.4-8.2)
[2022-06-25 17:04] LABS: BASOPHILS PERCENT MAN 0 % (0-2); EOSINOPHILS PERCENT MAN 0 % (0-6); LYMPHOCYTES PERCENT MAN 3 % (21-46); MONOCYTES ABSOLUTE MAN 0.06 K/mm3 (0.16-1.47); MONOCYTES PERCENT MAN 1 % (4-13); NEUTROPHILS ABSOLUTE MAN 6.64 K/mm3 (1.96-9.15); SEG NEUTROPHILS PERCENT MAN 96 % (41-73); TOTAL CELLS COUNTED 100
[2022-06-25 21:39] VITALS: BP 120/89
[2022-06-25 22:23] VITALS: BP 131/71
[2022-06-25 22:43] VITALS: BP 120/63
[2022-06-25 22:45] VITALS: BP 120/63
[2022-06-25 23:52] VITALS: BP 130/73
[2022-06-25 23:53] VITALS: BP 130/73
[2022-06-26 00:53] VITALS: BP 138/94
[2022-06-26 02:07] VITALS: BP 135/96
--- NOTE | 2022-06-26 05:33 | NUR ---
Shift Summary Pt arrived to our unit from ED w/ dx of bilateral plueral effusions. She is on 2L O2 via NC. CT study shows PE in RLL, d-dimer 12.62. Hgb was 6.8 upon arrival, pt rcvd 1 unit PRBC. Platelets critically low on arrival at 23. Pt has new onset ascites from a few days ago, belly is firm and tender. 50 mcg Fentanyl patch on R arm upon arrival, placed 06/25. Pt on sees Dr. Bowman for oncology, last chemo treatment 06/24/22. Chemo drug is Vidaza per pt. Pt has mediport which is not accessed at this time. +2 edema on lower extremeties. Hx of metastatic ovarian cancer, lung and liver cancer. No c/o pain or nausea this shift. AOx4, VSS, pleasant and cooperative.
[2022-06-26 05:57] LABS: Albumin, Blood 2.6 g/dL (3.4-5.0); Anion Gap 5 mmol/L (6-16); Blood Urea Nitrogen 19 mg/dL (8-24); Bun/Creatinine Ratio 29.8 (12.0-20.0); CO2, Blood 31 mmol/L (21-32); Calcium, Blood 8.8 mg/dL (8.5-10.1); Chloride, Blood 100 mmol/L (98-108); Creatinine, Blood 0.64 mg/dL (0.40-1.00); Glomerular Filtration Rate 107 (60-); Glucose, Blood 130 mg/dL (70-99); Magnesium, Blood 1.7 mg/dL (1.6-2.4); Phosphorus, Blood 3.4 mg/dL (2.5-4.9); Potassium, Blood 3.7 mmol/L (3.5-5.5); Sodium, Blood 136 mmol/L (136-145)
[2022-06-26 07:37] VITALS: BP 134/82
[2022-06-26 09:29] LABS: Hematocrit 22.3 % (33.0-51.0); Hemoglobin 7.7 g/dL (11.5-16.0); Mean Corpuscular HGB 29.7 pg (26.0-34.0); Mean Corpuscular HGB Conc 34.5 g/dL (31.5-36.5); Mean Corpuscular Volume 86 fL (80-100); Mean Platelet Volume 9.5 fL (9.1-12.4); NRBC ABSOLUTE 0.02 K/mm3 (0.00-0.02); NRBC Auto 0.4 /100 WBC (0.0-0.2); RDW Coefficient Variation 14.5 % (11.7-14.2); Red Blood Cell Count 2.59 M/mm3 (3.80-5.20); White Blood Cell Count 5.06 K/mm3 (4.00-11.30)
[2022-06-26 09:52] LABS: Platelet Count 16 K/mm3 (150-400)
[2022-06-26 09:57] LABS: BAND PERCENT MAN 3 % (0-8); BASOPHILS PERCENT MAN 0 % (0-2); EOSINOPHILS ABSOLUTE MAN 0.05 K/mm3 (0.00-0.68); EOSINOPHILS PERCENT MAN 1 % (0-6); LYMPHOCYTES PERCENT MAN 6 % (21-46); MONOCYTES ABSOLUTE MAN 0.05 K/mm3 (0.16-1.47); MONOCYTES PERCENT MAN 1 % (4-13); MYELOCYTE PERCENT MAN 2 % (0-0); NEUTROPHILS ABSOLUTE MAN 4.45 K/mm3 (1.96-9.15); SEG NEUTROPHILS PERCENT MAN 85 % (41-73); TOTAL CELLS COUNTED 100
[2022-06-26 10:11] LABS: LYMPHOCYTES % ATYPICAL MANUAL 2 % (0-0)
[2022-06-26 10:22] LABS: International Normalized Ratio 1.07; Prothrombin Time Results 11.2 Sec (9.7-11.5)
--- NOTE | 2022-06-26 10:31 | NUR ---
[facility] CALLED TO TALK ABOUT PLATELET AND NEEDING A PT/INR AND PTT ORDERED. THEY THEN CALLED BACK TO REALY THAT THE RADIOLOGIST WANTS TO TAP HER TOMORROW. RELAYED THE INFORMATION TO DR NGUYEN. PT WILL NEED A PLATELET TRANSFUSION PRIOR TO TAP. CONTINUE POC.
--- NOTE | 2022-06-26 10:33 | NUR ---
DR BISHOP CALLED CONSULT TO [facility]. LORA REQUESTED A FAXED CT ABD REPORT FOR DR BISHOP. PRINTED AND FAXED TO PROVIDED FAX NUMBER. CONTINUE POC.
--- NOTE | 2022-06-26 12:12 | NUR ---
NOTE DR BISHOP HERE TO SEE PT. CONTINUE POC.
--- NOTE | 2022-06-26 15:57 | NUR ---
NOTE PT AWKA AND ALERT. MET WITH DR BISHOP THIS AFTERNOON. HE TALKED WITH HER AND SPOUCE ABOUT THE SPREAD OF HER CANCER. HE REQUESTED A PLEURIX DRAIN FOR PALATIVE COMFORT. CURATIVE PHASE OF HER CARE IS OVER. HE TALKED WITH THEM ABOUT HOSPICE. CALLED CONSULT FOR DR MICHELLE TO THE ANSWERING SERVICE. OFFICE WASN'T OPEN YET. AFTER MEETING WITH DR BISHOP PT REQUESTED TO GO OUTSIDE FOR SOME AIR. FOUND A REAL W/C WITH OXYGEN. BUNDLED HER UP IN BLANKETS AND HER TOOK HER OUTSIDE. THEY WERE GONE FOR MAYBE 15 MINUTES. WHILE GONE CHANGED BEDDING, CLEANED ROOM. SHE RETURNED SMILING. SHE WAS THEN WILLING TO TALK ABOUT WHAT SHE HAD BEEN TOLD. NOTED THAT SHE IS HAVING DIFFICULTY EXPRESSING HERSELF. DR BISHOP NOTED IT WELL. WORK FINDING DIFFICULTY NOTED. WE TALKED ABOUT THE PLEURIX DRAIN. DR BISHOP HAD INCREASED HER FENTAYL PATCH TO 50 MCG YESTERDAY. SHE SAYS HER PAIN IS UPPER STOMACH AND LOWER RIGHT RIBS. MEDICATED WITH AN ADDITIONAL ROXICODONE 5MG X2 TODAY. BOTH EFFECTIVE FOR COMFORT. SPOUCE RELAXING. HE IS SMILING AND WATCHING MOVIES WITH ER. CONTINUE POC.
--- NOTE | 2022-06-26 17:35 | NUR ---
doctor Gracie in to see pateint. plan is pleurex and hospice. attemtpted visit with pt for support not ready will follow up with plan of care.
--- NOTE | 2022-06-26 17:51 | NUR ---
DINNER BROUGHT DINNER IN FOR PT. CONTINUE POC.
[2022-06-26 20:00] VITALS: BP 125/90
[2022-06-27] VITALS (17 sets, daily range): BP systolic 121–150; BP diastolic 54–104
--- NOTE | 2022-06-27 04:53 | NUR ---
SUMMARY: NO ACUTE EVENTS OVERNIGHT. PATIENT AOX4. VERY DIMINISHED BASES IN LUNGS. PLAN FOR PLEURX DRAIN PLACEMENT TODAY. NPO SINCE MIDNIGHT. PATIENT HAD INCREASED PAIN OVERNGIHT. OXY INCRESED TO HOME DOSE 10MG. PATIENT REPORTED PAIN IMPROVED. CALL LIGHT IN REACH. VSS.
[2022-06-27 05:37] LABS: Hematocrit 22.2 % (33.0-51.0); Hemoglobin 7.4 g/dL (11.5-16.0); Mean Corpuscular HGB 28.9 pg (26.0-34.0); Mean Corpuscular HGB Conc 33.3 g/dL (31.5-36.5); Mean Corpuscular Volume 87 fL (80-100); Mean Platelet Volume 9.8 fL (9.1-12.4); NRBC ABSOLUTE 0.02 K/mm3 (0.00-0.02); NRBC Auto 0.5 /100 WBC (0.0-0.2); RDW Coefficient Variation 14.6 % (11.7-14.2); RDW Standard Deviation 46.3 fL (35.1-46.3); Red Blood Cell Count 2.56 M/mm3 (3.80-5.20); White Blood Cell Count 3.71 K/mm3 (4.00-11.30)
[2022-06-27 05:51] LABS: Platelet Count 10 K/mm3 (150-400)
--- NOTE | 2022-06-27 12:33 | NUR ---
PLEURIX/PLATLETS BLOOD BANK CONFIRMED THAT THERE ARE 3 TO USE FOR PT. CALLED DAY SURGERY TO COORDINATE INFUSION WITH OR TIME. DR WALKRE CALLED TO HELP ARRANGE TIMING AND OR TIME. B\PT RECEIVING UNIT #1 HERE, THEN TO CALL DAY SURGERY TO COME GET HER. DAY SURGERY TO GIVE #2. LAB PATHOLOGIST REQUESTED THAT O.R HOLD #3 TO GIVE AFTER PLEURIX PLACED. PT TOLERATING #1 AT 320 ML/HR. VSS. CONTINUE POC.
--- NOTE | 2022-06-27 16:16 | NUR ---
06/27/22 1616 Tavo Orellana 20CC LIDOCAINE
--- NOTE | 2022-06-27 18:01 | NUR ---
post op POST OP REPORT RECEIVED FROM MORENA DUNN. PT ARRIVED AWAKE AND ALERT. BEFORE PT LEFT WE CHANGED HER OUT OF HER PAJAMAS HER SKIN WAS CLEAR. WHEN SHE CAME BACK IT WAS NOTED THAT SHE HAS PATECJIAL HEMORAGES AND OTHER BRUISES SCATTERED OVER HER CHEST AND ABD. NO PETECHIAL HEMORRHAGES NOTED ON HER FEET OR HANDS. VSS. FAMILY AT BEDSIDE. LEFT CHEST PLEURIX DRAIN DRESSED AND COVERED. PT HAS BEEN UP TO BATHROOM WITH SBA. called dr ocampo about the bruising. He ordered an STAT CBC. COntinue poc.
[2022-06-27 18:15] LABS: BASOPHILS ABSOLUTE AUTO 0.01 K/mm3 (0.00-0.23); BASOPHILS PERCENT AUTO 0 % (0-2); EOSINOPHILS PERCENT AUTO 2 % (0-6); Hematocrit 20.6 % (33.0-51.0); IMMATURE GRAN PERCENT AUTO 11 % (0-1); LYMPHOCYTES ABSOLUTE AUTO 0.24 K/mm3 (0.84-5.20); LYMPHOCYTES PERCENT AUTO 5 % (21-46); MONOCYTES ABSOLUTE AUTO 0.13 K/mm3 (0.16-1.47); MONOCYTES PERCENT AUTO 3 % (4-13); Mean Corpuscular HGB 29.4 pg (26.0-34.0); Mean Corpuscular Volume 87 fL (80-100); Mean Platelet Volume 9.2 fL (9.1-12.4); NEUTROPHILS ABSOLUTE AUTO 3.69 K/mm3 (1.96-9.15); NEUTROPHILS PERCENT AUTO 79 % (41-73); Platelet Count 61 K/mm3 (150-400); RDW Coefficient Variation 14.6 % (11.7-14.2); RDW Standard Deviation 45.7 fL (35.1-46.3); Red Blood Cell Count 2.38 M/mm3 (3.80-5.20); White Blood Cell Count 4.67 K/mm3 (4.00-11.30)
[2022-06-28] VITALS (7 sets, daily range): BP systolic 122–138; BP diastolic 71–81
--- NOTE | 2022-06-28 04:51 | NUR ---
Summary: Patient had Pleurx drain placed yesterday. A lot of drainage around site overnight. Dressing changed this morning. Patient port is accessed and connected to KVO. Pain meds given per EMAR. Post Op vitals taken. No acute events overnight. Patient on 3L O2 via NC. Call light in reach. Patient able to ambulate independently.
[2022-06-28 05:25] LABS: Hematocrit 20.2 % (33.0-51.0); Hemoglobin 6.8 g/dL (11.5-16.0); Mean Corpuscular HGB 29.1 pg (26.0-34.0); Mean Corpuscular HGB Conc 33.7 g/dL (31.5-36.5); Mean Corpuscular Volume 86 fL (80-100); Mean Platelet Volume 10.1 fL (9.1-12.4); NRBC ABSOLUTE 0.02 K/mm3 (0.00-0.02); NRBC Auto 0.6 /100 WBC (0.0-0.2); Platelet Count 52 K/mm3 (150-400); RDW Coefficient Variation 14.5 % (11.7-14.2); RDW Standard Deviation 45.9 fL (35.1-46.3); Red Blood Cell Count 2.34 M/mm3 (3.80-5.20); White Blood Cell Count 3.26 K/mm3 (4.00-11.30)
[2022-06-28 05:32] LABS: Bun/Creatinine Ratio 31.6 (12.0-20.0); Calcium, Blood 8.6 mg/dL (8.5-10.1); Creatinine, Blood 0.57 mg/dL (0.40-1.00); Potassium, Blood 3.7 mmol/L (3.5-5.5)
--- NOTE | 2022-06-28 11:27 | NUR ---
Pt resting in bed upon arrival. Pt is A&OX4 and reports 7/10 pain at surgical site. Pt reports dyspnea has significantly improved since PleurX drain placement. Pt reports being and has a daughter. Brief review of plan of care with potential plan to D/C tomorrow. Engaged in therapeutic conversation regarding goals of care. Pt reports being undecided if she plans to pursue hospice or continue with transfusions and hospital stays. Pt's Edgard arrives. Continued conversation. Educated on hospice philosophy with V/U made by Pt and spouse. Pt reports plan to have further conversations with family on options when she gets home. Gentle discussion regarding code status. Educated on life sustaining treatments including risks and implications to CPR/Intubation. Pt reports she will consider her wishes. Offered therapeutic listening, validated concerns, and answered questions. Pt and family express appreciation and report no other concerns at this time. Also discussed education on PleurX drain and suggested with starting to watch video. Pt and spouse report already watching video and feel comfortable with the process. Pt states it may take 2 or 3 times for me to get it down but does not have any questions or concerns. Spoke with RN Juan Ferreira and discussed case. Spoke with Primary RN César and discussed case. César will discuss with DR Garza regarding orders for PleurX drain. Palliative Care will remain available
--- NOTE | 2022-06-28 14:45 | NUR ---
Met with Arlen this afternoon. She is well known to this personal lines underwriter from [facility] visits to the [facility] for transfusions. Supportive visit today. Allowed her to verbalize her experience of being in the hospital this week. Current plan is to go home with HH tomorrow. Had a pleurX drain placed yesterday afternoon which she states has improved her dyspnea. She verbalizes that she has had some difficult discussions this week about which direction she should take moving forward. She reports this is the first time in her cancer treatment journey that she has had to have these tough conversations. Emotional support given. Pt is currently receiving a PRBC transfusion. Visit kept short to allow her to rest as she reports she has had many visitors during her stay on the medical floor. PC to remain available.
--- NOTE | 2022-06-28 16:54 | NUR ---
SHIFT SUMMARY: PATIENT A&OX4. CALM, PLEASANT AND COOPERATIVE c CARE. USES CALL LIGHT APPROPRIATELY AND ABLE TO MAKE NEEDS KNOWN. PATIENT DENIES CP/PRESSURE, N/V. PATIENT REPORTS SLIGHTLY SOB c AMBULATION. PATIENT ON 2L OF O2 VIA NC c SPO2 RANGES 95-97% T/O SHIFT. PATIENT RECEIVED SHOWER AND LINEN CHANGED TODAY. LUNGS CLEAR AND DIM T/O TO AUSCULTATION. RECEIVED 1 UNIT OF PRBC. REPORTS PAIN 7/10 TO BACK AND LEFT RIBCAGE. MEDICATED X1 c OXYCODONE. PATIENT REPORTS OF GOOD RELIEF FROM PAIN MEDS. PLEURX DRAIN SITE DRESSING C/D/I. PALLIATIVE CARE NURSE CAME AND SAW PATIENT TODAY. PATIENT RECEIVED SCHEDULED MEDS PER EMAR. VITAL SIGNS REVIEWED. R UPPER CHEST PORT INFUSING KVO AT THIS TIME. CALL LIGHT IN REACH.
[2022-06-29 04:08] VITALS: BP 148/86
[2022-06-29 04:44] LABS: Hematocrit 22.8 % (33.0-51.0); Hemoglobin 7.6 g/dL (11.5-16.0); Mean Corpuscular HGB Conc 33.3 g/dL (31.5-36.5); Mean Corpuscular Volume 87 fL (80-100); Mean Platelet Volume 9.7 fL (9.1-12.4); NRBC ABSOLUTE 0.02 K/mm3 (0.00-0.02); NRBC Auto 0.7 /100 WBC (0.0-0.2); RDW Coefficient Variation 14.3 % (11.7-14.2); RDW Standard Deviation 45.5 fL (35.1-46.3); Red Blood Cell Count 2.62 M/mm3 (3.80-5.20); White Blood Cell Count 2.79 K/mm3 (4.00-11.30)
[2022-06-29 04:52] LABS: Platelet Count 25 K/mm3 (150-400)
[2022-06-29 05:04] LABS: Calcium, Blood 8.5 mg/dL (8.5-10.1); Creatinine, Blood 0.55 mg/dL (0.40-1.00); Potassium, Blood 3.7 mmol/L (3.5-5.5)
--- NOTE | 2022-06-29 06:35 | NUR ---
SHIFT SUMMARY PT LAYING IN BED DURING BESIDE REPORT FROM TON DUNN- SPOUSE AND FAMILY IN ROOM - PT REPORTED AT THAT TIME THAT HER FENTANYL PATCH FELL OFF DURING SHOWER AND NOT REPLACED, AND PT REQUESTED TO CONTINUE HOME MEDS TRAZADONE AND PAROXETINE - ALL WAS ORDERED BY ELVA SANTOS- PT FLUIDS INFUSING AT 15ML/HR VIA MEDIPORT- PT ON 2L NC- BED LOW POSITION, CALL LIGHT WITHIN REACH
[2022-06-29 07:08] VITALS: BP 127/83
[2022-06-29] MEDS ORDERED: DOCUZEN 8.6-501 EACH PO (12:24)
[2022-06-29] MEDS ORDERED: SIME80CH PO (12:25)
[2022-06-29] MEDS ORDERED: MIRALAX17 GM PO (12:25)
[2022-06-29] MEDS ORDERED: TRAZ50 PO (12:25)
[2022-06-29] MEDS ORDERED: FENTANYL1 EAC7 TOP (12:36)
--- NOTE | 2022-06-29 13:21 | NUR ---
Spoke with Dr Garza prior to Pt visit and discussed case with Primary RN César and Dr Ames. Pt would benefit from draining today before D/C home. He reports order can be as needed to manage symptoms. César places nursing order reflecting this. Pt's spouse Edgard has arrived and Pt is ready for draining. Pt and spouse has already watch video on PleurX drain. Educated spouse Edgard on procedure for PleurX drain by this RN guiding him step by step instructions. Spouse Edgard appears to have understanding as evidenced by demonstration of procedure. Approximately 180 mls of bloody and occasion clots drained. Pt reports feeling better after draining. Pt and spouse report no concerns and expresses appreciation. Palliative Care will remain available
--- NOTE | 2022-06-29 17:58 | NUR ---
SHIFT/DISCHARGE SUMMARY: PATIENT A&OX4. CALM, PLEASANT AND COOPERATIVE c CARE. USES CALL LIGHT APPROPRIATELY AND ABLE TO MAKE NEEDS KNOWN. PATIENT PLATELETS THIS AM LAB WAS 25. REPORTS TO DR. CAGE DURING PATIENT ROUNDING THIS AM. PER DR. CAGE SHE IS NOT CONCERN c THE PATIENT PLATELETS. PATIENT WANTING TO GO HOME. THIS RN EDUCATE PATIENT c HER LOW PLATELETS S/S AND WHAT TO EXPECT. ENCOURAGE PT TO CALLED DR. BISHOP [facility] ON FRIDAY TO MAKE AN APPOINTMENT. PATIENT STATED UNDERSTANDING. PLEURX DRESSING CHANGED AND DRAINED TODAY BY NEYDA PALLIATIVE CARE RN AND PATIENT SPOUSE bhumika STEVENSON 180 MLS DRAINAIGE OUTPUT BLOODY AND SOME CLOTS. PATIENT REPORTS FEELING BETTER AFTER DRAINING. PATIENT HAD HOME O2 EVAL. RT RECOMMENDED 3L OF O2 VIA NC. PORT FLUSHED c HEPARIN BY MONA DACOSTA. PATIENT REPORTS PAIN TO BACK, MEDICATED X1 c OXYCODONE c GOOD EFFECT. PATIENT AMBULATES TO BATHROOM c SBA. VITAL SIGNS REVIEWED. DENIES CP/PRESSURE, N/V. RECEIVED SCHEDULED MEDS PER EMAR. PATIENT DISCHARGE HOME. DISCHARGE INSTRUCTION PACKET GIVEN TO PATIENT. EDUCATE PATIENT AND SPOUSE REGARDING PLEURX DRAIN SYSTEM AND DRESSING CHANGED TO THE SITE. PATIENT AND SPOUSE STATED UNDERSTANDING AND NO FURTHER QUESTIONS. RX WAS FAXED TO PATIENT PREFERRED PHARMACY ([facility]). PORTABLE O2 DELIVERED TO ROOM BY BIJU JENSEN . ALL PATIENT PERSONAL BELONGINGS WERE SENT HOME c THE PATIENT. PATIENT LEFT THE ROOM AT AROUND 1740. PATIENT WAS TRANSPORTED VIA WHEELCHAIR BY EMBEDDED SOFTWARE ENGINEER STAFF, TRAVIS MONTES TO PATIENT SPOUSE PRIVATE VEHICLE.
== END 2022-06-29 17:40 | disposition home health service (06) | DRG 186 ==
LOC: ER 15:24 → MEDS 19:39
PROVIDERS: Internal Medicine; Physician Assistant; ADMIT Internal Medicine
PROC: 30233N1 Transfusion of Nonautologous Red Blood Cells into Peripheral Vein, Percutaneous Approach (ICD-10-PCS; principal; 2022-06-25)
PROC: 30233R1 Transfusion of Nonautologous Platelets into Peripheral Vein, Percutaneous Approach (ICD-10-PCS; 2022-06-25)
PROC: 0W9B30Z Drainage of Left Pleural Cavity with Drainage Device, Percutaneous Approach (ICD-10-PCS; 2022-06-27)
DX: J90 Pleural effusion, not elsewhere classified (principal); I26.93 Single subsegmental thrombotic pulmonary embolism without acute cor pulmonale; J96.01 Acute respiratory failure with hypoxia; C56.1 Malignant neoplasm of right ovary; D61.818 Other pancytopenia; C78.7 Secondary malignant neoplasm of liver and intrahepatic bile duct; C78.01 Secondary malignant neoplasm of right lung; C78.02 Secondary malignant neoplasm of left lung; D69.6 Thrombocytopenia, unspecified; F41.9 Anxiety disorder, unspecified; D63.0 Anemia in neoplastic disease; D46.9 Myelodysplastic syndrome, unspecified; Z87.891 Personal history of nicotine dependence; Z90.710 Acquired absence of both cervix and uterus; Z98.890 Other specified postprocedural states; Z79.899 Other long term (current) drug therapy
CPT/HCPCS: 36415; 36430; 71046; 71260; 74177; 80048; 80053; 80069; 83735; 83880; 84484; 85025; 85027; 85379; 85610; 85730; 86850; 86900; 86901; 86923; 93005; 93010; 93970; 94760; 94761; 99285-25; A9270; J1170; J1642; J2250; J3010; J7030; J7120; P9016; P9035; P9040; P9053; Q9967

== ENCOUNTER 2022-07-12 00:25 | Day surgery (SDC) | payer BC ==
[2022-07-11 13:19] LABS: Hemoglobin 6.3 g/dL (11.5-16.0); Mean Corpuscular HGB 30.1 pg (26.0-34.0); Mean Corpuscular Volume 86 fL (80-100); Mean Platelet Volume 9.2 fL (9.1-12.4); NRBC ABSOLUTE 0.05 K/mm3 (0.00-0.02); NRBC Auto 0.6 /100 WBC (0.0-0.2); RDW Coefficient Variation 14.6 % (11.7-14.2); RDW Standard Deviation 45.3 fL (35.1-46.3); Red Blood Cell Count 2.09 M/mm3 (3.80-5.20); White Blood Cell Count 8.31 K/mm3 (4.00-11.30)
[2022-07-11 13:23] LABS: Platelet Count 12 K/mm3 (150-400)
[2022-07-11 14:23] LABS: BAND PERCENT MAN 10 % (0-8); BASOPHILS PERCENT MAN 0 % (0-2); EOSINOPHILS PERCENT MAN 0 % (0-6); LYMPHOCYTES ABSOLUTE MAN 0.08 K/mm3 (0.84-5.20); LYMPHOCYTES PERCENT MAN 1 % (21-46); METAMYELOCYTE ABSOLUTE MAN 0.08 K/mm3 (0.00-0.00); METAMYELOCYTE PERCENT MAN 1 % (0-0); MONOCYTES PERCENT MAN 0 % (4-13); MYELOCYTE ABSOLUTE MAN 0.24 K/mm3 (0.00-0.00); MYELOCYTE PERCENT MAN 3 % (0-0); NEUTROPHILS ABSOLUTE MAN 7.89 K/mm3 (1.96-9.15); SEG NEUTROPHILS PERCENT MAN 85 % (41-73); TOTAL CELLS COUNTED 100
[2022-07-12] VITALS (7 sets, daily range): BP systolic 125–157; BP diastolic 72–92
[~2022-07-12 00:25] MED LIST changes: +DOCUZEN 8.6-501 EACH PO; +FENTANYL1 EAC7 TOP; +MIRALAX17 GM PO; +SIME80CH PO; +TRAZ50 PO
--- NOTE | 2022-07-12 14:48 | NUR ---
PT DECLINES PRE MEDS FOR HER BLOOD TRANSFUSION TODAY.
== END 2022-07-12 18:30 | disposition home or self-care (01) ==
LOC: ATC 00:25 → LAB FUT 07-08 12:10 → ATC 07-08 12:10 → EDSTATUS 07-08 12:10
PROVIDERS: Internal Medicine Hematology & Oncology
DX: D46.21 Refractory anemia with excess of blasts 1 (principal); C56.1 Malignant neoplasm of right ovary
CPT/HCPCS: 36415; 36430; 85025; 86850; 86900; 86901; 86923; A9270; J1642; J7050; P9016

== ENCOUNTER 2022-07-15 13:35 | Day surgery (SDC) | payer BC ==
[2022-07-15 10:52] LABS: BASOPHILS ABSOLUTE AUTO 0.05 K/mm3 (0.00-0.23); BASOPHILS PERCENT AUTO 1 % (0-2); Hematocrit 23.1 % (33.0-51.0); Hemoglobin 7.8 g/dL (11.5-16.0); LYMPHOCYTES ABSOLUTE AUTO 0.34 K/mm3 (0.84-5.20); LYMPHOCYTES PERCENT AUTO 4 % (21-46); MONOCYTES ABSOLUTE AUTO 0.31 K/mm3 (0.16-1.47); MONOCYTES PERCENT AUTO 3 % (4-13); Mean Corpuscular HGB Conc 33.8 g/dL (31.5-36.5); Mean Corpuscular Volume 86 fL (80-100); NRBC ABSOLUTE 0.04 K/mm3 (0.00-0.02); NRBC Auto 0.4 /100 WBC (0.0-0.2); RDW Coefficient Variation 14.4 % (11.7-14.2); RDW Standard Deviation 44.7 fL (35.1-46.3); Red Blood Cell Count 2.69 M/mm3 (3.80-5.20); White Blood Cell Count 9.71 K/mm3 (4.00-11.30)
[2022-07-15 11:11] LABS: EOSINOPHILS ABSOLUTE AUTO 0.05 K/mm3 (0.00-0.68); EOSINOPHILS PERCENT AUTO 1 % (0-6); IMMATURE GRAN ABSOLUTE AUTO 2.15 K/mm3 (0.00-0.10); IMMATURE GRAN PERCENT AUTO 22 % (0-1); NEUTROPHILS ABSOLUTE AUTO 6.81 K/mm3 (1.96-9.15); NEUTROPHILS PERCENT AUTO 70 % (41-73)
[2022-07-15 11:14] LABS: Platelet Count 2 K/mm3 (150-400)
[2022-07-15 16:20] VITALS: BP 118/84
[2022-07-15 16:47] VITALS: BP 111/69
--- NOTE | 2022-07-15 16:54 | NUR ---
PT CAME IN ON 3 LITERS/MIN OF OXYGEN CONTINUOUSLY.
[2022-07-15 17:43] VITALS: BP 127/73
== END 2022-07-15 17:50 | disposition home or self-care (01) ==
LOC: ATC 13:35 → EDSTATUS 13:36 → ATC 17:50
PROVIDERS: Internal Medicine Hematology & Oncology
DX: C56.1 Malignant neoplasm of right ovary (principal); D46.21 Refractory anemia with excess of blasts 1; Z79.899 Other long term (current) drug therapy
CPT/HCPCS: 36415; 36430; 85025; 86900; 86901; 96374; A9270; J1200; J1642; J7050; P9035

== ENCOUNTER 2022-07-18 16:14 | Inpatient (IN) | payer BC ==
[~2022-07-18] VITALS: Ht 170.2 cm; Wt 115.7 kg
[2022-07-18 17:04] LABS: Hematocrit 19.1 % (33.0-51.0); Hemoglobin 6.6 g/dL (11.5-16.0); Mean Corpuscular HGB 29.5 pg (26.0-34.0); Mean Corpuscular HGB Conc 34.6 g/dL (31.5-36.5); Mean Corpuscular Volume 85 fL (80-100); NRBC ABSOLUTE 0.03 K/mm3 (0.00-0.02); NRBC Auto 0.3 /100 WBC (0.0-0.2); RDW Standard Deviation 44.3 fL (35.1-46.3); Red Blood Cell Count 2.24 M/mm3 (3.80-5.20)
[2022-07-18 17:11] LABS: Platelet Count 26 K/mm3 (150-400)
[2022-07-18 17:20] LABS: Albumin, Blood 2.2 g/dL (3.4-5.0); Albumin/Globulin Ratio 0.6 (0.8-1.8); Bilirubin, Total 0.6 mg/dL (0.1-1.0); Bun/Creatinine Ratio 36.8 (12.0-20.0); Calcium, Blood 8.5 mg/dL (8.5-10.1); Creatinine, Blood 0.63 mg/dL (0.40-1.00); Globulin, Blood 3.9 g/dL (2.2-4.0); Potassium, Blood 4.2 mmol/L (3.5-5.5); Total Protein, Blood 6.1 g/dL (6.4-8.2)
[2022-07-18 17:24] LABS: BAND PERCENT MAN 12 % (0-8); BASOPHILS PERCENT MAN 0 % (0-2); EOSINOPHILS PERCENT MAN 0 % (0-6); LYMPHOCYTES ABSOLUTE MAN 0.19 K/mm3 (0.84-5.20); LYMPHOCYTES PERCENT MAN 2 % (21-46); METAMYELOCYTE ABSOLUTE MAN 0.39 K/mm3 (0.00-0.00); METAMYELOCYTE PERCENT MAN 4 % (0-0); MONOCYTES ABSOLUTE MAN 0.09 K/mm3 (0.16-1.47); MONOCYTES PERCENT MAN 1 % (4-13); MYELOCYTE ABSOLUTE MAN 0.39 K/mm3 (0.00-0.00); MYELOCYTE PERCENT MAN 4 % (0-0); NEUTROPHILS ABSOLUTE MAN 8.81 K/mm3 (1.96-9.15); SEG NEUTROPHILS PERCENT MAN 77 % (41-73); TOTAL CELLS COUNTED 100
[2022-07-18] MEDS ORDERED: LEVFLO500 PO (21:59)
[2022-07-18 22:40] VITALS: BP 92/64
[2022-07-19] VITALS (11 sets, daily range): BP systolic 110–127; BP diastolic 64–88
[2022-07-19 05:58] LABS: Hematocrit 25.3 % (33.0-51.0); Hemoglobin 8.9 g/dL (11.5-16.0); Mean Corpuscular HGB 30.4 pg (26.0-34.0); Mean Corpuscular HGB Conc 35.2 g/dL (31.5-36.5); Mean Corpuscular Volume 86 fL (80-100); Mean Platelet Volume 10.6 fL (9.1-12.4); NRBC ABSOLUTE 0.02 K/mm3 (0.00-0.02); NRBC Auto 0.2 /100 WBC (0.0-0.2); RDW Coefficient Variation 14.3 % (11.7-14.2); RDW Standard Deviation 45.1 fL (35.1-46.3); Red Blood Cell Count 2.93 M/mm3 (3.80-5.20); White Blood Cell Count 11.58 K/mm3 (4.00-11.30)
[2022-07-19 06:10] LABS: Platelet Count 15 K/mm3 (150-400)
--- NOTE | 2022-07-19 06:34 | NUR ---
PT ABLE TO STAND AND TRANSFER TO BSC WITH X1 ASSIST, ALSO REQUIRES ASSIST FOR BED MOBILITY. SPOUSE LEFT PT PERSONAL WALKER FROM HOME. ABD DISTENSION AND PAIN PRESENT. NO CHANGES NOTED TO PLEURAVENT DRAIN. NO OPEN SKIN WOUNDS BUT SCATTERED ECCHYMOSIS AND HEALED WOUNDS. POOR APPETITE IN RECENT WEEKS. 2 UNITS PRBC ADMINISTERED LAST NIGHT. THIS MORNING AFTER 0600 PT HAD CRITICALLY LOW PLATELETS OF 15, HGB INCREASED TO 8.9. OXYCODONE 10 MG GIVEN X2 WITH FENTANYL PATCH IN PLACE.
[2022-07-19 06:36] LABS: Albumin, Blood 2.2 g/dL (3.4-5.0); Albumin/Globulin Ratio 0.6 (0.8-1.8); Bilirubin, Total 1.5 mg/dL (0.1-1.0); Bun/Creatinine Ratio 33.1 (12.0-20.0); Calcium, Blood 8.6 mg/dL (8.5-10.1); Creatinine, Blood 0.72 mg/dL (0.40-1.00); Globulin, Blood 3.8 g/dL (2.2-4.0); Magnesium, Blood 2.2 mg/dL (1.6-2.4); Potassium, Blood 4.5 mmol/L (3.5-5.5)
[2022-07-19 06:48] LABS: BAND PERCENT MAN 9 % (0-8); BASOPHILS PERCENT MAN 0 % (0-2); EOSINOPHILS PERCENT MAN 0 % (0-6); LYMPHOCYTES ABSOLUTE MAN 0.11 K/mm3 (0.84-5.20); LYMPHOCYTES PERCENT MAN 1 % (21-46); METAMYELOCYTE ABSOLUTE MAN 0.11 K/mm3 (0.00-0.00); METAMYELOCYTE PERCENT MAN 1 % (0-0); MONOCYTES ABSOLUTE MAN 0.23 K/mm3 (0.16-1.47); MONOCYTES PERCENT MAN 2 % (4-13); MYELOCYTE ABSOLUTE MAN 0.23 K/mm3 (0.00-0.00); MYELOCYTE PERCENT MAN 2 % (0-0); NEUTROPHILS ABSOLUTE MAN 10.88 K/mm3 (1.96-9.15); SEG NEUTROPHILS PERCENT MAN 85 % (41-73); TOTAL CELLS COUNTED 100
[2022-07-19] MEDS ORDERED: PARO20 PO (09:47)
[2022-07-19] MEDS ORDERED: LEVFLO500 PO (09:50)
[2022-07-19] MEDS ORDERED: ALPR.5 PO (09:51)
--- NOTE | 2022-07-19 11:54 | NUR ---
PLEURIX PT REQUESTED PLEURIX DRAIN. PROVIDED THE KIT. ACCESSED WITH STERILE TECHNIQUE. EMANUEL OFF 500 ML OF DARK, THICK BLOODY LIQUID. PT UNABLE TO TOLERATE MORE OFF. SITE CLEANED. REDRESSED THE PROVIDED DRESSING KIT. CONTINUE POC.
--- NOTE | 2022-07-19 14:39 | NUR ---
PT TO [facility] FOR EGD FROM MEDICAL FLOOR, IV IN RIGHT A/C PATENT, FLUSHED WITH 10ML SALINE. DENIES PAIN.
--- NOTE | 2022-07-19 15:00 | NUR ---
07/19/22 [place] History, Chart, Medications and Allergies reviewed before start of procedure. MONITOR INTACT WITH CONTINUOUS PULSE OXIMETRY, CONTINUOUS END TITAL CO2, AND INTERMITTENT BLOOD PRESSURE. 3-LEAD EKG REVIEWED WITH PHYSICIAN PRIOR TO START OF PROCEDURE. O2 VIA POM INTACT THROUGHOUT SEDATION/PROCEDURE. SEE DR OGDEN'S NOTES FOR DETAILS REGARDING ANESTHESIA CARE.
--- NOTE | 2022-07-19 15:45 | NUR ---
Requested to meet with pt to discuss advanced care planning. Bedside nurse, Nava, reports she has had conversations with both Arlen and her re: advanced care planning. Called Dr. Bowman's office and spoke with Tejinder prior to visiting with Arlen. Tejinder was able to pull up Dr. Bowman's most recent note from 07/08/22. Dr. Bowman outlined two options for Arlen that he discussed with Arlen and her during the last hospitalization. 1) Hospice 2) Continue with twice weekly lab draws and transfuse prn. Reviewed chart. Arlen is now requiring multiple transfusions of platlets and PRBCs and the time in between the transfusions is decreasing. 07/09/22 2 units of PRBCs and 1 unit of platlets 07/12/22 2 units of PRBCs 07/15/22 1 unit of platlets 07/19/22 2 units of PRBCs Arlen is quite weak mostly chair bound, she is able to stand and transfer from wc to chair however she becomes SOB with the movement. She now requires continuous O2. She has increasing edema to abd and legs. Her pleurX drain in left chest produced 500 ml bloody drainage per nursing this morning. Spoke with Arlen while Edgard was at her bedside about what her wishes are. Explained her current situation and the inability to fix her medical problems. Discussed improving her pain control. She is currently wearing a fentanyl patch [address] speak [address] Carrillo about getting that ordered for her. Edgard verbalized that Arlen has been taking levaquin 500 mg daily for 8 days, she has 2 days left and they would like to finish out the course of abx. She reports she is having a good day today. Edgard reports she has good and bad days and ok days. He reports she has been having more bad days recently. Started to broach the code status discussion when SDU staff arrived to take her for her EGD. Explained that she is at high risk for bleeding with her low platlets counts. She reports that she wants to go ahead with the EGD. She states maybe the results of this test will help her with making a decision. While Arlen was getting ready with SDU staff, spoke with Edgard out in the hallway. Edgard states he has tried to have the conversation with Arlen about hospice multiple times but she won't make a decision. He is tearful at times. Emotional support given. Edgard is trying to care for her the best he can and verbalizes the noticable decline in her health. Arlen acknowledges that her body is getting weaker but she up to this point has wanted to keep going. Encouraged them to continue to have a conversation about her wishes. Will plan to follow up with Arlen and Edgard to continue discussions re: goals of care. Will encourage Arlen verbalize what is most important to her moving forward. Nursing updated. Spoke with Dr. Carrillo and updated her on conversation. New orders placed for fentanyl patch and levaquin per Dr. Carrillo. PT to continue to follow.
[2022-07-19 16:38] LABS: Mean Platelet Volume 9.6 fL (9.1-12.4); Platelet Count 63 K/mm3 (150-400)
--- NOTE | 2022-07-19 17:16 | NUR ---
Met with Edgard in [facility]. Arlen is back from her EGD. Edgard verbalizes his decision to respect Arlen's wishes however he states if it were up to him he would take her home with hospice. He is showing signs of caregiver fatigue. He reports that HH is following them at home but doesn't feel well supported. He states "I can care for her but when I don't know what to do I bring her to the hospital." He is unsure of how much longer he will be able to care for her without additional supports in place. Hard choices book, hospice pamphlet and [facility] info given to Edgard who verbalized his appreciation for the material. Encouraged self care for Edgard. He reports he has his parents who are his support system. Will plan to meet with Edgard and Arlen tomorrow for additional support.
--- NOTE | 2022-07-19 17:16 | NUR ---
POST EGD REPORT RECEIVED FROM LUI DUNN. PT ARRIVED AWAKER AND ALERT. TRANSFERED TO NEW BED WITH SLIDER SHEET AND 4 ASSIST. SHE WAS COMPLAINING OF REFLUX. MEDICATED WITH ORDERED PROTONIX AND REGLAN. SPOUCE AT BEDSIDE. PT AND SPOUCE SAW PHOTOS. BROUGHT PT A POPSICLE AND ICE WATER. VSS. CONTINUE POC.
[2022-07-20 04:07] VITALS: BP 130/80
[2022-07-20 06:07] LABS: Hematocrit 23.5 % (33.0-51.0); Hemoglobin 8.2 g/dL (11.5-16.0); Mean Corpuscular HGB 30.1 pg (26.0-34.0); Mean Corpuscular HGB Conc 34.9 g/dL (31.5-36.5); Mean Corpuscular Volume 86 fL (80-100); Mean Platelet Volume 10.1 fL (9.1-12.4); RDW Standard Deviation 47.1 fL (35.1-46.3); Red Blood Cell Count 2.72 M/mm3 (3.80-5.20)
[2022-07-20 06:16] LABS: Platelet Count 47 K/mm3 (150-400)
--- NOTE | 2022-07-20 06:44 | NUR ---
EARLY IN SHIFT PT WAS SVT IN 140S-150S. GAVE XANAX AND PAIN MEDS, REPOSITIONED. HR SLOWED BACK TO BASELINE IN 120S. PT STARTED VOMITING FREQUENTLY AFTER MIDNIGHT, DARK AND LIQUIDY, SMALL AMOUNTS, APPROXIMATELY 10 OCCURANCES. ABD DISTENDED, PAINFUL. OXYCODONE MODERATELY EFFECTIVE. X1 ASSIST TO BSC FOR VOIDS APPROXIMATELY EVERY 2 HOURS. INCREASED O2 TO 6L, SATS ARE LOW TO MID 90S.
[2022-07-20 06:57] LABS: Percent Saturation 47.8 % (15.0-50.0)
[2022-07-20 07:02] LABS: Albumin, Blood 2.1 g/dL (3.4-5.0); Albumin/Globulin Ratio 0.6 (0.8-1.8); Calcium, Blood 8.3 mg/dL (8.5-10.1); Creatinine, Blood 0.62 mg/dL (0.40-1.00); Globulin, Blood 3.6 g/dL (2.2-4.0); Potassium, Blood 4.6 mmol/L (3.5-5.5); Total Protein, Blood 5.7 g/dL (6.4-8.2)
[2022-07-20 07:34] VITALS: BP 124/74
--- NOTE | 2022-07-20 11:50 | NUR ---
Met with pt this morning as she was finishing up her oral care. She reports she didn't sleep much last night. She states her abdomen is distended, kpad applied to her abd per her request. She reports she had some nausea over night with emesis. She reports that she is leaning towards a decision about her care but doesn't feel up to discussing it at this time. She reports SOB and feels that it will be difficult to articulate her wishes when she is feeling SOB. She states Edgard hasn't been in today to visit her yet, however she has talked to him and is aware that he took some reading materials home last night. Offered to come back to have a conversation about her wishes when she is feeling up to it. She is appreciative of this plan. Will plan to allow her time with her when he visits and will come back when she is ready to talk about advanced care planning. She requested pain medication. Spoke with Simone, her nurse, who will plan to medicate per the EMAR.
[2022-07-20 15:06] VITALS: BP 101/57
--- NOTE | 2022-07-20 18:41 | NUR ---
PT PLEASANT TODAY. H/R REG, NO MURMUR NOTED. TELE: S TACH AT 118 THIS AM. LUNGS CLEAR, ON R/A. ABD DISTTENDED. PT HAS PLEUREX DRAIN, BUT DID NOT ACCESS LAST NITE OR TODAY PER PT. +3 EDEMA BLE. 1 ASST TO BSC. PT HAS HAD BROWN EMESIS TODAY, MIN AMOUNTS. CONTINUES TO BE NAUSEAUS. DR STARTED ON REGLIN AND CARAFATE TODAY. PAIN MANAGED WITH AVAIL MEDS. FAMILY IN TO SEE TODAY. VSS. MEDIPORT WAS ACCESSED PRIOR TO THIS SHIFT. I PLACED ORDERS FOR HEPARIN FOR LOCK AND FUTURE D/C. FLUSHED AND STARTED ON NS AT 10 TKO. NO OTHER CONCERNS NOTED TODYA. BED IN LOW POSITION, CALL LITE IN REACH, CALLS APPROP
[2022-07-20 19:33] VITALS: BP 109/58
[2022-07-21] VITALS (12 sets, daily range): BP systolic 105–122; BP diastolic 64–83
[2022-07-21 06:18] LABS: Hemoglobin 7.8 g/dL (11.5-16.0); Mean Corpuscular HGB Conc 33.9 g/dL (31.5-36.5); Mean Corpuscular Volume 89 fL (80-100); Mean Platelet Volume 9.8 fL (9.1-12.4); RDW Standard Deviation 47.9 fL (35.1-46.3); White Blood Cell Count 9.19 K/mm3 (4.00-11.30)
[2022-07-21 06:42] LABS: Platelet Count 29 K/mm3 (150-400)
--- NOTE | 2022-07-21 07:26 | NUR ---
SMALL FREQUENT VOMITING SINCE APPROXIMATELY 0400, UNCOMFORTABLE DUE TO FLUID BUILD UP IN ABDOMEN. OXYCODONE 10 MG GIVEN X3. MEDIPORT ACCESSED, NS RUNNING TKO. HR WAS LOWER THAN PREVIOUS SHIFTS. NO SIGNIFICANT CHANGES FROM PREVIOUS ASSESSMENT.
--- NOTE | 2022-07-21 14:53 | NUR ---
Met with Arlen briefly this afternoon. She is very sleepy. She briefly opened her eyes when spoken to and appears to drift right back to sleep. She is currently getting a platlet transfusion. Reglan was added as a medication last evening. Will monitor to see if the reglan and zofran are enough to help with controlling her nausea. No family currently at bedside. Unable to have a conversation with Arlen at this time as she is unable to keep her eyes open. PC to continue to assist with advanced care planning.
--- NOTE | 2022-07-21 18:22 | NUR ---
SHIFT SUMMARY PATIENT WITH N/V THIS AM, MEDICATED PER EMAR. PAIN MEDICATED PER EMAR, PATIENT ABLE TO UTILIZE ONLY ORAL PAIN MEDS TODAY WITH LEVEL LOW 2 THIS EVENING AND REPORTS NO N/V SINCE 1300. PLATELETS TRANSFUSED. PATIENT TOLERATE WELL. WILL CONTINUE TO MONITOR.
--- NOTE | 2022-07-21 18:26 | NUR ---
THIS BRIDGE ATTACHER HAS REVIEWED AND AGREES WITH ALL NOTES AND ASSESSMENTS BY MONA ATIYA.
[2022-07-21 18:49] LABS: Hematocrit 21.3 % (33.0-51.0); Hemoglobin 7.1 g/dL (11.5-16.0); Mean Corpuscular HGB 29.7 pg (26.0-34.0); Mean Corpuscular HGB Conc 33.3 g/dL (31.5-36.5); Mean Corpuscular Volume 89 fL (80-100); Mean Platelet Volume 9.4 fL (9.1-12.4); NRBC ABSOLUTE 0.03 K/mm3 (0.00-0.02); NRBC Auto 0.3 /100 WBC (0.0-0.2); Platelet Count 52 K/mm3 (150-400); RDW Standard Deviation 48.7 fL (35.1-46.3); Red Blood Cell Count 2.39 M/mm3 (3.80-5.20)
[2022-07-21 19:15] LABS: BAND PERCENT MAN 3 % (0-8); BASOPHILS PERCENT MAN 0 % (0-2); EOSINOPHILS PERCENT MAN 0 % (0-6); LYMPHOCYTES ABSOLUTE MAN 0.71 K/mm3 (0.84-5.20); LYMPHOCYTES PERCENT MAN 7 % (21-46); METAMYELOCYTE PERCENT MAN 4 % (0-0); MONOCYTES PERCENT MAN 4 % (4-13); MYELOCYTE ABSOLUTE MAN 0.71 K/mm3 (0.00-0.00); MYELOCYTE PERCENT MAN 7 % (0-0); NEUTROPHILS ABSOLUTE MAN 7.95 K/mm3 (1.96-9.15); SEG NEUTROPHILS PERCENT MAN 75 % (41-73); TOTAL CELLS COUNTED 100
[2022-07-22] VITALS (11 sets, daily range): BP systolic 101–121; BP diastolic 68–98
--- NOTE | 2022-07-22 05:56 | NUR ---
PT IS A&O4, VERY WEAK, 2PERSON TO THE COMMODE, 3L NC AT BASELINE, PRN PAIN MEDICATION GIVEN PER MAR, VSS, CONTINUE POC
[2022-07-22 06:59] LABS: Hematocrit 20.1 % (33.0-51.0); Hemoglobin 6.7 g/dL (11.5-16.0); Mean Corpuscular HGB 29.6 pg (26.0-34.0); Mean Corpuscular HGB Conc 33.3 g/dL (31.5-36.5); Mean Corpuscular Volume 89 fL (80-100); Mean Platelet Volume 9.3 fL (9.1-12.4); NRBC ABSOLUTE 0.03 K/mm3 (0.00-0.02); NRBC Auto 0.3 /100 WBC (0.0-0.2); RDW Standard Deviation 48.6 fL (35.1-46.3); Red Blood Cell Count 2.26 M/mm3 (3.80-5.20); White Blood Cell Count 10.49 K/mm3 (4.00-11.30)
[2022-07-22 07:06] LABS: Platelet Count 39 K/mm3 (150-400)
[2022-07-22 07:09] LABS: Albumin, Blood 2.1 g/dL (3.4-5.0); Anion Gap 6 mmol/L (6-16); Blood Urea Nitrogen 25 mg/dL (8-24); CO2, Blood 27 mmol/L (21-32); Calcium, Blood 8.4 mg/dL (8.5-10.1); Chloride, Blood 95 mmol/L (98-108); Creatinine, Blood 0.61 mg/dL (0.40-1.00); Glomerular Filtration Rate 108 (60-); Glucose, Blood 110 mg/dL (70-99); Magnesium, Blood 1.8 mg/dL (1.6-2.4); Phosphorus, Blood 3.2 mg/dL (2.5-4.9); Potassium, Blood 4.3 mmol/L (3.5-5.5); Sodium, Blood 128 mmol/L (136-145)
[2022-07-22 07:23] LABS: BAND PERCENT MAN 6 % (0-8); BASOPHILS PERCENT MAN 0 % (0-2); EOSINOPHILS ABSOLUTE MAN 0.31 K/mm3 (0.00-0.68); EOSINOPHILS PERCENT MAN 3 % (0-6); LYMPHOCYTES % ATYPICAL MANUAL 1 % (0-0); LYMPHOCYTES ABSOLUTE MAN 0.52 K/mm3 (0.84-5.20); LYMPHOCYTES PERCENT MAN 4 % (21-46); METAMYELOCYTE ABSOLUTE MAN 0.31 K/mm3 (0.00-0.00); METAMYELOCYTE PERCENT MAN 3 % (0-0); MONOCYTES PERCENT MAN 2 % (4-13); MYELOCYTE ABSOLUTE MAN 0.94 K/mm3 (0.00-0.00); MYELOCYTE PERCENT MAN 9 % (0-0); NEUTROPHILS ABSOLUTE MAN 8.18 K/mm3 (1.96-9.15); SEG NEUTROPHILS PERCENT MAN 72 % (41-73); TOTAL CELLS COUNTED 100
--- NOTE | 2022-07-22 12:03 | NUR ---
Accessed pt's PleurX, drained 500cc's sanguinous drainage. pt tolerated well. She is going home with [facility]. Information passed forward to MONA Ferreirafarrowing manager.
[2022-07-22] MEDS ORDERED: SIME80CH PO (15:55)
[2022-07-22] MEDS ORDERED: Carafate1 GM/10 ML PO (15:56)
[2022-07-22] MEDS ORDERED: ATROPINE SULFATE2 M1 SL (15:58)
[2022-07-22] MEDS ORDERED: Ativan1 MG PO (15:58)
[2022-07-22] MEDS ORDERED: METO10 PO (15:59)
[2022-07-22] MEDS ORDERED: MORP20L PO (16:01)
[2022-07-22] MEDS ORDERED: TRANSDERM-SCOP1 EA10 TD (16:01)
[2022-07-22] MEDS ORDERED: PANTOPRAZOLE SO40 M2 PO (16:01)
--- NOTE | 2022-07-22 17:55 | NUR ---
PATIENT IS ALERT AND ORIENTED AND COOPERATIVE WITH CARE. PAIN MANAGED PER EMAR. 2 UNITS OF PRBC ADMINISTED THIS SHIFT. PLAN IS TO DISCHARGE HOME WITH HOSPICE AT 6PM. WILL CONTINUE TO MONITOR
== END 2022-07-22 18:41 | disposition hospice, home (50) | DRG 381 ==
LOC: ER 16:14 → MEDS 16:15
PROVIDERS: Anesthesiology; Internal Medicine; Physician Assistant; ADMIT Student in an Organized Health Care Education/Training Program
PROC: 5A2204Z Restoration of Cardiac Rhythm, Single (ICD-10-PCS; principal; 2022-07-20)
PROC: 0DJ08ZZ Inspection of Upper Intestinal Tract, Via Natural or Artificial Opening Endoscopic (ICD-10-PCS; 2022-07-20)
PROC: 30233R1 Transfusion of Nonautologous Platelets into Peripheral Vein, Percutaneous Approach (ICD-10-PCS; 2022-07-21)
PROC: 30233N1 Transfusion of Nonautologous Red Blood Cells into Peripheral Vein, Percutaneous Approach (ICD-10-PCS; 2022-07-22)
DX: K22.11 Ulcer of esophagus with bleeding (principal); C56.1 Malignant neoplasm of right ovary; I47.1 Supraventricular tachycardia; C78.7 Secondary malignant neoplasm of liver and intrahepatic bile duct; C78.02 Secondary malignant neoplasm of left lung; C78.01 Secondary malignant neoplasm of right lung; C78.6 Secondary malignant neoplasm of retroperitoneum and peritoneum; D61.818 Other pancytopenia; J96.11 Chronic respiratory failure with hypoxia; E87.1 Hypo-osmolality and hyponatremia; Z51.5 Encounter for palliative care; K21.9 Gastro-esophageal reflux disease without esophagitis; D46.9 Myelodysplastic syndrome, unspecified; Z86.711 Personal history of pulmonary embolism; Z87.891 Personal history of nicotine dependence; Z90.710 Acquired absence of both cervix and uterus; Z79.899 Other long term (current) drug therapy
CPT/HCPCS: 36415; 36430; 71260; 80053; 80069; 82607; 82728; 82746; 83540; 83550; 83605; 83690; 83735; 83880; 84484; 85025; 85027; 85049; 86850; 86900; 86901; 86923; 93005; 93010; 94760; 96374-59; 96375; 96375-59; 96376; 99291-25; A9270; C9113; G0378; J0153; J1642; J1940; J2405; J2550; J2704; J2765; J7030; J7040; J7050; J7120; P9016; P9035; P9053; Q9967